=== PATIENT | female | born 1945 | race Caucasian/White ===

== ENCOUNTER 2022-02-27 12:48 | Outpatient (CLI) | payer MEDICARE, SELFPAY ==
--- NOTE | ~2022-02-27 | MM_ITS ---
EXAMINATION: MM diagnostic lamin BI w justin HISTORY: Left breast mass seen on recent nuclear scan. Mammography requested. TECHNIQUE: Additional 3-D tomosynthesis images of the breasts were performed and synthetic 2-D images were generated. CAD analysis was submitted and interpreted. COMPARISON: Comparison to multiple prior studies sequentially, with oldest reviewed study dated 05/28. BREAST PARENCHYMAL COMPOSITION: Breast composed of scattered areas of fibroglandular density. FINDINGS: There are no suspicious masses, calcifications or architectural distortion in either breast to suggest malignancy. There are benign calcified nodules in the subareolar location of the left xin ast which are unchanged. There are benign calcifications. IMPRESSION: 1. No mammographic evidence for malignancy in either breast. 2. Routine yearly screening mammogram and regular clinical breast examination are recommended. BI-RADS Category 2: Benign finding(s). Reviewed, dictated and finalized at location A. IMPRESSION: 1. No mammographic evidence for malignancy in either breast. 2. Routine yearly screening mammogram and regular clinical breast examination a re recommended. BI-RADS Category 2: Benign finding(s).
== END 2022-02-27 12:49 | disposition home or self-care (01) ==
PROVIDERS: PCP Family Medicine; Visit Provider Family Medicine
DX: R93.89 Abnormal findings on diagnostic imaging of other specified body structures (principal); R92.8 Other abnormal and inconclusive findings on diagnostic imaging of breast
CPT/HCPCS: 77062; 77066; G0279

== ENCOUNTER 2022-12-14 09:38 | Outpatient (CLI) | payer MEDICARE, SELFPAY ==
--- NOTE | 2022-12-14 | ECHO_ITS ---
Patient Info Name: Kelly Chan Age: 77 years : 1945 Gender: Female Ht: 63 in Wt: 147 lbs BSA: 1.74 m2 HR: 78 bpm BP: 111 / 67 mmHg Technical Quality: Fair Exam Date: 12/14/2022 10:24 AM Exam Location: [facility] Patient Status: Outpatient Admit Date: 12/14/2022 Staff Ordering Physician: Gauri, Fatimah Underwood MD User Experience Designer: Maria Dolores Maxwell RDCS Attending Provider: Gauri, Fatimah Underwood MD Referring Physician: Gauri PENNINGTON; Exam Type: CA echo doppler color flow Study Info Indications R06.00 - Dyspnea, unspecified Complete two-dimensional, color flow and Doppler transthoracic echocardiogram is performed. Summary 1. Complete two-dimensional, color flow and Doppler transthoracic echocardiogram is performed. 2. Left ventricular chamber dimension is normal. 3. Left ventricular systolic function is normal, estimated at 60-65%. 4. The left ventricular diastolic function is grade I diastolic dysfunction. 5. E/e' 9 is minimally elevated. 6. Mild right ventricular hypertrophy. 7. There is mild aortic valve sclerosis. 8. No pulmonary hypertension, estimated pulmonary arterial systolic pressure is 29 mmHg. 9. There is trace pulmonic regurgitation. Left Ventricle E/e' 9 is minimally elevated. Left ventricular chamber dimension is normal. Left ventricular systolic function is normal, estimated at 60-65%. The left ventricular diastolic function is grade I diastolic dysfunction. Right Ventricle Mild right ventricular hypertrophy. Right ventricular chamber dimension is normal. Right ventricular systolic function is normal. Left Atria Left atrial chamber dimension is normal. Right Atria Right atrial chamber dimension is normal. Aortic Valve The aortic valve is trileaflet. There is mild aortic valve sclerosis. There is no aortic valve stenosis. There is no aortic valve regurgitation. Pulmonic Valve There is trace pulmonic regurgitation. Mitral Valve There is no mitral valve stenosis. There is no mitral valve regurgitation. Tricuspid Valve There is no tricuspid valve regurgitation. No pulmonary hypertension, estimated pulmonary arterial systolic pressure is 29 mmHg. Pericardium/Pleural There is no pericardial effusion. Inferior Vena Cava Normal inferior vena cava with >50% collapse upon inspiration consistent with normal right atrial pressure, 5 mmHg. Aorta The aortic root size at the sinus of Valsalva is normal. Left Ventricular Outflow Tract Name Value Normal LVOT 2D LVOT Diameter 2.0 cm LVOT Doppler LVOT Peak Gradient 5 mmHg LVOT Mean Gradient 3 mmHg LVOT VTI 22 cm LVOT VTI/AV VTI Ratio 1.1 LVOT Stroke Volume 69 ml LVOT CO 14.2 l/min LVOT CI 8.2 l/min/m2 Pulmonic Valve Name Value Normal
== END 2022-12-14 09:39 | disposition home or self-care (01) ==
LOC: ANHCARD 09:39
PROVIDERS: PCP Family Medicine; Visit Provider Family Medicine
DX: R06.00 Dyspnea, unspecified (principal); I35.1 Nonrheumatic aortic (valve) insufficiency
CPT/HCPCS: 93306

== ENCOUNTER 2024-08-28 11:59 | Outpatient (CLI) | payer MEDICARE, SELFPAY ==
[2024-08-28 12:27] LABS: Hematocrit 44.6 % (37.0-47.0); Hemoglobin 14.5 g/dL (12.0-15.0); Mean Corpuscular HGB Conc 32.5 g/dl (32-36); Mean Corpuscular Hemoglobin 31.5 pg (26-34); Mean Platelet Volume 9.3 fl (7.4-10.4); Platelet Count Result 447 k/mm3 (150-375); Red Cell Distribution Width 13.5 % (11.5-14.5); White Blood Count 12.5 K/mm3 (4.5-10.0)
[2024-08-28 12:43] LABS: Alanine Aminotransferase 14 U/L (6-35); Albumin Level 4.4 g/dL (3.5-5.1); Alkaline Phosphatase 79 U/L (38-126); Anion Gap 12 mmol/L (4-12); Aspartate Amino Transferase 35 U/L (14-36); Bilirubin,Total 0.7 mg/dL (0.2-1.3); Blood Urea Nitrogen 14 mg/dL (7-17); CRP < 0.5 mg/dL (<1.0); Calcium 8.3 mg/dL (8.4-10.2); Carbon Dioxide 25 mmol/L (22-30); Chloride 100 mmol/L (98-107); Estimated Glomerular Filt Rate 43; Glucose 109 mg/dL (65-110); Potassium 3.1 mmol/L (3.4-5.0); Sodium 137 mmol/L (137-145)
[2024-08-28 13:07] LABS: Erythrocyte Sedimentation Rate 15 mm/hr (0-20)
[2024-09-01 15:38] LABS: Immunoglobulin A 120 mg/dL (70-320); TTG IGA AB <1.0 U/mL
== END 2024-08-28 12:00 | disposition home or self-care (01) ==
PROVIDERS: PCP Family Medicine; Visit Provider Nurse Practitioner
DX: R63.4 Abnormal weight loss (principal); K63.89 Other specified diseases of intestine; K58.9 Irritable bowel syndrome, unspecified
CPT/HCPCS: 36415; 80053; 82784; 84443; 85027; 85652; 86140; 86364

== ENCOUNTER 2024-09-03 15:34 | Outpatient (CLI) | payer MEDICARE, SELFPAY ==
--- NOTE | ~2024-09-03 | CT_ITS ---
EXAMINATION: CT chest abdomen pelvis wo con DATE: 09/03/2024 15:53 INDICATION: Abnormal weight loss. TECHNIQUE: Computed tomography (CT) of the chest, abdomen, and pelvis was performed without intraveno us contrast. Automated exposure control and iterative reconstruction technique were employed. The dos e-length product was 478.81 mGy-cm. COMPARISON: None FINDINGS: CHEST CT: There is septal thickening in the inferior lungs with subpleural bands in the lower lobes. There is m ild bronchiectasis in the inferior lungs. Right middle lobe is small. No honeycombing. A calcified ri ght lung nodule is consistent with old granulomatous disease. No pleural effusion. The heart size is normal. There are coronary artery calcifications. No pericardial effusion. The central pulmonary is e nlarged, consistent with pulmonary arterial hypertension. There is severe cervical and thoracic spond ylosis. ABDOMEN/PELVIS CT: The liver and spleen are normal. There are changes of cholecystectomy. The pancreas, adrenal glands, and kidneys are normal. There is no urolithiasis. Stool distends the rectum. There is diverticulosis of the colon without evidence of diverticulitis. There are no dilated loops of bowel. The appendix is normal. There is calcified atherosclerosis of the aorta and many of the other arteries. There is a 1 7 mm saccular aneurysm of abdominal aorta on the left. There are no pathologically enlarged lymph nod es. There is no free intraperitoneal fluid. There are bilateral inguinal hernias containing fat. Ther e is thoracolumbar levoscoliosis and severe spondylosis. IMPRESSION: 1. Mild chronic interstitial lung disease. 2. Bilateral inguinal hernias containing fat. Reviewed, dictated and finalized at location A. D CONTROLLER
== END 2024-09-03 15:35 | disposition home or self-care (01) ==
PROVIDERS: PCP Family Medicine; Visit Provider Nurse Practitioner
DX: R63.4 Abnormal weight loss (principal); J84.9 Interstitial pulmonary disease, unspecified; K40.20 Bilateral inguinal hernia, without obstruction or gangrene, not specified as recurrent
CPT/HCPCS: 71250; 74176

== ENCOUNTER 2024-09-04 17:09 | Outpatient (NON) | payer MEDICARE, SELFPAY ==
[2024-09-11 18:44] LABS: Pancreatic Elastase, Stool >800 mcg/g (>200)
== END 2024-09-04 17:10 | disposition home or self-care (01) ==
LOC: ANHIMG 17:10
PROVIDERS: PCP Family Medicine; Visit Provider Nurse Practitioner
DX: R63.4 Abnormal weight loss (principal); K63.89 Other specified diseases of intestine; K58.9 Irritable bowel syndrome, unspecified; A04.8 Other specified bacterial intestinal infections
CPT/HCPCS: 82653; 83993; 87045; 87269; 87338; 87427; 87449; 87493

== ENCOUNTER 2024-09-29 08:59 | Outpatient (CLI) | payer MEDICARE, SELFPAY ==
--- NOTE | ~2024-09-29 | DEXA_ITS ---
Bone Density Report Name: ANDRE MEDRANO Age: 79 Sex: Female Ethnicity: White Date of : 1945 Indication: postmenopausal; screening for osteoporosis; height loss; inflammatory bowel disease; hysterectomy; Referring Provider: HILARIA, SOUMYA Gray Study: Bone densitometry was performed. Exam Date: September 29, 2024 Accession number: [id number] Bone Density: Region BMD T-score Z-score Classification AP Spine(L1, L2, L3) 1.000 -0.2 2.5 Normal Femoral Neck (Left) 0.576 -2.5 -0.1 Osteoporosis Total Hip (Left) 0.632 -2.5 -0.4 Osteoporosis Femoral Neck (Right) 0.579 -2.4 -0.1 Osteopenia Total Hip (Right) 0.699 -2.0 0.1 Osteopenia Total Hip Mean 0.665 -2.3 -0.2 Osteopenia World Health Organization criteria for BMD impression classify patients as: Normal (T-score at or above -1.0), Osteopenia (T-score between -1.0 and -2.5), or Osteoporosis (T-score at or below -2.5). 10-year Fracture Risk: FRAX not reported because: Some T-score for Spine Total or Hip Total or Femoral Neck at or below -2.5 Previous Exams: Region Exam Age BMD T-score BMD Change BMD Change Date g/cm2 vs Baseline vs Previous AP Spine (L1-L3) 09/29/2024 79 1.000 -0.2 -0.058 (-5.4%) -0.058 (-5.4%) 07/04/2016 71 1.058 0.4 Total Hip(Left) 09/29/2024 79 0.632 -2.5 -0.247 (-28.1% -0.247 (-28.1% 07/04/2016 71 0.879 -0.5 Total Hip(Right) 09/29/2024 79 0.699 -2.0 -0.180 (-20.4% -0.180 (-20.4% 07/04/2016 71 0.879 -0.5 *Denotes significance at 95% confidence level, LSC for AP Spine = 0.022 g/cm2, LSC for Total Hip = 0.027 g/cm2 Clinical Information Provided by Patient: Has the following medical conditions: Inflammatory bowel diseases, Hysterectomy Patient maximum height was 66.5 No regular weight bearing exercise Onset of menses at age 11 Number of children 5 Impression: The patient has osteoporosis, based on the Left Total Hip T-score. The BMD for the AP Spine (L1-L3) decreased, changing by -5.4% since the last DXA exam. The BMD for the Total Hip(Left) decreased, changing by -28.1% since the last DXA exam. The BMD for the Total Hip(Right) decreased, changing by -20.4% since the last DXA exam. Discussion: INCREASED RISK OF FRACTURE. BONE DENSITY IS UNDESIRABLY LOW AT ONE OR MORE SKELETAL SITES, CONSISTENT WITH POSTMENOPAUSAL OSTEOPOROSIS. This patient's lowest T-score meets the World Health Organization's (WHO) criteria for osteoporosis at one or more sites (T-score -2.5 or below). In untreated patients, the risk of osteoporotic fracture increases approximately two-fold for each 1.0 SD decrease in T-score. Low bone density is not the only risk factor for fracture; also consider factors such as patient's age, frailty or poor health, risk of falling, risk of injury, previous osteoporotic fracture, family history of osteoporosis, cigarette smoking, low body weight, etc. Not everyone with low bone mineral density has osteoporosis; osteomalacia and other metabolic bone disorders should also be considered. Patients who have osteoporosis should be evaluated for specific diseases and conditions (secondary causes) that may cause or contribute to bone loss. The [place] Association of Clinical Endocrinologists (AACE) and National Osteoporosis Foundation (NOF) recommend pharmacologic intervention for all postmenopausal women whose T-score is in this range. The patient should follow a healthful lifestyle (good nutrition with adequate calcium and vitamin D, and appropriate weight-bearing exercise). Follow-Up: Consider a repeat BMD and Vertebral Fracture Assessment (VFA) exam in 2 years or sooner if medically necessary, to reassess this patient's status. Reported by: MIL on 09/29/2024 9:35:00 AM. Reviewed, dictated and finalized at location [facility]
== END 2024-09-29 09:00 | disposition home or self-care (01) ==
LOC: ANHIMG 09:02
PROVIDERS: PCP Nurse Practitioner Family; Visit Provider Internal Medicine Rheumatology
DX: Z78.0 Asymptomatic menopausal state (principal); Z79.52 Long term (current) use of systemic steroids; M81.0 Age-related osteoporosis without current pathological fracture; M85.851 Other specified disorders of bone density and structure, right thigh
CPT/HCPCS: 77080

== ENCOUNTER 2024-12-16 02:33 | Day surgery (SDC) | payer MEDICARE, SELFPAY ==
[2024-12-08 12:00] VITALS: BMI 22.6
--- OUTSIDE RECORDS SUMMARY | 2024-12-16 02:36 | XMS_ITS | Clinical Summary ---
Author Organization [facility] Address [address] [place] [address] Care Team Providers Care Clinical Nursing Instructor Name Role Phone Fatimah Astorga MD Primary Care Provider + Allergies Active Allergy Reactions Criticality Noted Date Comments Morphine Anaphylaxis Reaction: ANAPHYLAXIS, Medications atorvastatin (LIPITOR) 20 mg tablet TK 1 T PO QD 4 04/24/20 18 Active aspirin 81 mg enteric coated tablet daily 12/30/19 09 Active lansoprazole (PREVACID) 30 mg capsule 2 (two) times a day 4 03/06/20 18 Active cholecalciferol (VITAMIN D-3) 2,000 unit tablet qd 12/30/19 09 Active nitrofurantoin monohydrate (MACROBID) 100 mg capsule nitrofurantoin monohydrate/macroc rystals 100 mg capsule TAKE 1 CAPSULE BY MOUTH EVERY 12 HOURS FOR 7 DAYS Active omeprazole (PriLOSEC) 40 mg capsule Active furosemide (LASIX) 20 mg tablet Take 1 tablet (20 mg total) by mouth 2 (two) times a day 03/22/20 23 Active allopurinoL (ZYLOPRIM) 100 mg tablet Take 1 tablet (100 mg total) by mouth daily 03/07/20 23 Active nitroglycerin (NITROSTAT) 0.[address] 1 tablet (0.4 mg total) under the tongue every 5 (five) minutes as needed for chest pain 90 tablet 1 06/01/20 23 Active lisinopril-hydr oCHLOROthiazide (ZESTORETIC) 20-12.5 mg per tablet TAKE 2 TABLETS BY MOUTH EVERY DAY 180 tablet 3 07/09/20 23 Active amLODIPine (NORVASC) 5 mg tablet TAKE 1 TABLET (5 MG TOTAL) BY MOUTH DAILY. 90 tablet 1 10/11/19 24 Active Active Problems Problem Noted Date Diagnosed Date Coronary artery disease invo lving [place] coronary artery of [place] heart without angina pectoris 04/29/2018 Essential hypertension 04/29/2018 Immunizations Immunization Administration Dates Next Due Influenza, Trivalent, IM (MDV) 10/29/2006 Moderna SARS-CoV-2 Monovalent Vaccination (12+ Y RS) 12/31/2020,12/03/2020 Family History Medical History Relation Name Comments Heart attack Father Family history of myocardial infarction - (Added by TW Conv) Atrial fibrillation Sister Family h istory of atrial fibrillation - (Added by TW Conv) Relation Name Status Comments Father Sister Social History Tobacco Use Types Packs/Day Years Used Date Smoking Tobacco: Never Smokeless Tobacco: Never Comments Unknown Sex and Gender Information Value Date Recorded Sex Assigned at Not on file 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 Gender Identity Not on file Sexual Orientation Not on file Obstetrics History Last Filed Vital Signs Vital Sign Reading Time Taken Comments Blood Pressure 156/79 05/24/2023 9:58 AM CDT Pulse 88 05/24/2023 9:58 AM CDT Temperature 36.7 C (98 F) 05/12/2021 9:04 AM CDT Respiratory Rate - - Oxygen Saturation 98% 05/24/2023 9:58 AM CDT Inhaled Oxygen Concentration - - Weight 71.7 kg (158 lb) 05/24/2023 9:58 AM CDT Height 160 cm (5' 3 ) 05/24/2023 9:58 AM CDT Body Mass Index 27.99 05/24/2023 9:58 AM CDT Plan of Treatment Health Maintenance Due Date Last Done Comments Depression Screening 1945 Fall Risk Assessment 1945 Osteoporosis Screening-Bone Density Scan 1945 DTaP/Tdap/Td Vaccine (1 - Tdap) 1954 Hepatitis B Screening 1961 Zoster Vaccine (1 of 2) 1993 Well Visit 65+ 2008 Covid-19 Vaccine (3 - 2023-2 5 season) 2024 12/31/2020, 12/03/2020 Influenza Vaccine (#1) 2024 9, 06/11/2018, 07/02/2017, Additional history exists Pneumococcal vaccine 65+ Completed 06/01/2016, 06/18 Insurance MEDICARE MEDICARE MEDICARE [facility] Care Teams Clinical Nursing Instructor Relationship Specialty Start Date End Date Fatimah Astorga MD PCP - General 04/23/17
--- OUTSIDE RECORDS SUMMARY | 2024-12-16 02:36 | XMS_ITS | Clinical Summary ---
Author Organization [facility] Address [address] 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
--- OUTSIDE RECORDS SUMMARY | 2024-12-16 02:36 | XMS_ITS | Encounter Summary ---
Author Organization [facility] Address [address] [place] [address] Care Team Providers Care Filling Machine Set Up Mechanic Name Role Phone Unavailable Primary Care Provider Unavailabl e Encounter Details Date Type Department Care Team (Late st Contact Info) Description 10/29/1999 Outpatient Historical [facility], Bobby Whitmore MD [address], [place] [id number] Personal history of other disorder of urinary system (Primary Dx) Social History Tobacco Use Types Packs/Day Years Used Date Smoking Tobacco: Never Assessed Comments Unknown Sex and Gender Information Value Date Recorded Sex Assigned at Not on file 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
--- OUTSIDE RECORDS SUMMARY | 2024-12-16 02:36 | XMS_ITS | Referral Summary ---
Author Organization [facility] Address [address] [place] [address] Care Team Providers Care Metallurgical Lab Technician Name Role Phone Fatimah Astorga MD Primary [...] Diagnosed Date Coronary artery disease invo lving [place] coronary artery of [place] heart without angina pectoris 04/29/2018 Essential hypertension 04/29/2018 Immunizations Immunization Administration Dates Next Due Influenza, Trivalent, IM (MDV) 10/29/2006 Moderna SARS-CoV-2 Monovalent Vaccination (12+ Y RS) 12/31/2020,12/03/2020 Social History Tobacco Use Types Packs/Day Years Used Date Smoking Tobacco: Never Smokeless Tobacco: Never Comments Unknown Sex and Gender Information Value Date Recorded Sex Assigned at Not on file 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 Care Teams Metallurgical Lab Technician Relationship Specialty Start Date End Date Fatimah Astorga MD PCP - General 04/23/17
--- OUTSIDE RECORDS SUMMARY | 2024-12-16 02:36 | XMS_ITS | Data Portability ---
Author Organization [facility] [employer], Main Office Address [address] [place] [address] Care Team Providers Care Hog Dropper Name Role Phone MYKE ASTORGA Primary Care Provider MYKE ASTORGA Referring Provider Assessment Encounter Date Assessment Date Assessment LastModified by Organization Details LastModified Time 08/23/2023 08/23/2023 samples given linzess 72 mcg daily [email or web address] Not available 08/23/2023 14:24:40 Plan of Treatment Reminders Order Date Submit Date Provider Last Modified By Organization Details Last Modified Time Details Appointments Follow Up 30 2024 01:30P Surendra Hernandez NP Not available Not available Not available Lab lipid panel, serum 2024 025 [facility] (Lab), [address] [place], [address], 12/10/2024 10:52:42 hepatic function panel, serum 2024 025 [facility] (Lab), [address] [place], [address], 12/10/2024 10:52:42 CMP, serum or plasma 2024 025 [facility] (Lab), [address] [place], [address], 12/10/2024 10:52:43 glycohemo globin, total, blood 2024 025 [facility] (Lab), [address] [place], [address], 12/10/2024 10:52:43 iron + total iron-bind ing capacity (TIBC), serum 2024 025 [facility] (Lab), [address] [place], [address], 12/10/2024 10:52:43 ferritin, serum or plasma 2024 025 [facility] (Lab), [address] [place], [address], 12/10/2024 10:52:43 CBC w/ auto diff 2024 025 [facility] (Lab), [address] [place], [address], 12/10/2024 10:52:42 vitamin B12 + folate, serum or blood 2024 025 [facility] (Lab), [address] [place], [address], 12/10/2024 10:52:42 urinalysi s complete, reflex culture 2023 024 [facility] (Lab), [address] [place], [address], 01/01/2024 20:33:57 urinalysi s, dipstick 2023 024 [facility], [address] [place] [address] [address], [place], [address], 01/01/2024 13:31:36 ESR (erythroc yte sedimenta tion rate), blood 2023 024 [facility] (Lab), [address] [place], [address], 01/01/2024 20:33:29 BMP, serum or plasma 2023 024 [facility] (Lab), [address] [place], [address], 01/01/2024 21:19:49 CBC w/ auto diff 2023 024 [facility] (Lab), [address] [place], [address], 01/01/2024 19:45:51 vitamin B12, serum 2023 024 [facility] (Lab), [address] [place], [address], 01/01/2024 22:25:14 folate, serum 2023 024 [facility] (Lab), [address] [place], [address], 01/01/2024 22:25:16 ESR (erythroc yte sedimenta tion rate), blood [address] (Lab), [address] [place], [address], 08/23/2023 16:45:09 hepatic function panel, serum [address] (Lab), [address] [place], [address], 08/23/2023 16:43:25 lipid panel, serum [address] (Lab), [address] [place], [address], 08/23/2023 16:44:45 BMP, serum or plasma [address] (Lab), [address] [place], [address], 08/23/2023 16:42:56 iron + total iron-bind ing capacity (TIBC), serum [address] (Lab), [address] [place], [address], 08/23/2023 16:43:46 ferritin, serum or plasma [address] (Lab), [address] [place], [address], 08/23/2023 16:44:09 vitamin B12, serum [address] (Lab), [address] [place], [address], 08/23/2023 16:41:32 folate, serum [address] (Lab), [address] [place], [address], 08/23/2023 16:42:15 CBC w/ auto diff [address] (Lab), [address] [place], [address], 08/23/2023 16:42:36 Referral rheumatol ogist referral - Please call patient to schedule an appointme nt. Thank you. 2023 024 RAFAT Mirza DO, [address] [facility], [address], [place], [address], 05/15/2024 17:24:18 Procedures None recorded. Surgeries None recorded. Imaging None recorded. Medication Orders valacyclo vir 1 gram tablet 2024 025 [facility] [id number] [facility], [address] [place] [address], [address], 11/18/2024 14:25:59 hydrocodo ne 5 mg-acetam inophen 325 mg tablet 2024 025 [facility] [address] [facility], [address] [place] [address], [address], 11/18/2024 14:28:24 colchicin e 0.6 mg tablet 2023 024 [email or web address] [address] [facility] [address], [address], 11/18/2024 14:10:18 hydrocodo ne 5 mg-acetam inophen 325 mg tablet 2023 024 [facility] [address], [address], 04/25/2024 16:30:29 cephalexi n 500 mg capsule 2023 024 [email or web address] [address] [facility] [address], [address], 11/18/2024 14:09:59 nitrofura ntoin monohydra te/macroc rystals 100 mg capsule 2023 024 [email or web address] [address] [facility] [address], [address], 11/18/2024 14:11:54 hydrocodo ne 5 mg-acetam inophen 325 mg tablet 2023 024 [facility] [address], [address], 01/01/2024 13:14:17 prednison e 20 mg tablet 2023 024 [email or web address] 77 [facility] [address] In [facility], [address] [place] [address], [address], 11/18/2024 14:12:28 hydrocodo ne 5 mg-acetam inophen 325 mg tablet 2023 024 [facility] [address] In [facility], [address] [place] [address], [address], 11/26/2023 10:54:31 clobetaso l 0.05 % topical cream 2023 024 77 [facility] [address] In [facility], [address] [place] [address], [address], 04/25/2024 15:31:57 valacyclo vir 1 gram tablet 2022 023 [facility] [address], [address], 08/23/2023 14:18:33 hydrocodo ne 5 mg-acetam inophen 325 mg tablet 2022 023 [facility] [address] In [facility], [address] [place] [address], [address], 08/23/2023 14:25:13 triamcino lone acetonide 0.1 % topical cream 2022 023 [facility] [address], [address], 08/23/2023 14:18:30 nystatin 100,000 unit/gram topical cream 2022 023 [facility] [address], [address], 08/23/2023 14:18:31 Patient TargetsNo targets recorded. Patient Instructions Encounter Date Encounter Id Patient Instructions Last Modified By Organization Details Last Modified Time 11/18/2024 [id number] dementia rating scale-2* [email or web address] Not available 11/18/2024 15:42:50 multi-dimensiona l health assessment questionnaire* [email or web address] Not available 11/18/2024 14:29:24 care plan* [email or web address] Not available 12/2024 14:29:24 advance directives: care instructions [email or web address] Not available 11/18/2024 14:29:24 advance care planning: care instructions Not available 11/18/2024 14:29:24 [place] Advance Directives [email or web address] Not available 11/18/2024 14:29:24 Reason for Referral [employer] Referral for Referral needed Please call patient to schedule an appointment. Thank you. Referring Physician: Luzma Hernandez, Family Medicine, Encounter Date: 04/25/2024 Results Created Date Observation Date Name Description Value Unit Range Abnormal Flag Note LastModifiedBy Organization Detail LastModifiedTime 08/23/20 23 08/23/2023 CBC/C OMPLE TE BLD COUNT W/DIF F white blood cells 16.8 x10'3 /uL 4.2-10 .8 high Not Available [facility] (Lab) [address] [place], [address], 08/23/2023 21:26:38 08/23/20 23 08/23/2023 CBC/C OMPLE TE BLD COUNT W/DIF F red blood cells 4.11 x10'6 /uL 3.80-5 .20 Not Available [facility] (Lab) [address] [place], [address], 08/23/2023 21:26:38 08/23/20 23 08/23/2023 CBC/C OMPLE TE BLD COUNT W/DIF F hemoglobin 13.1 g/dL 12.0-1 5.6 Not Available [facility] (Lab) [address] [place], [address], 08/23/2023 21:26:38 08/23/20 23 08/23/2023 CBC/C OMPLE TE BLD COUNT W/DIF F hematocrit 41.6 % 35.7-4 5.7 Not Available [facility] (Lab) [address] [place], [address], 08/23/2023 21:26:38 08/23/20 23 08/23/2023 CBC/C OMPLE TE BLD COUNT W/DIF F mean red cell volume 101.2 fL 82.0-9 9.0 high Not Available [facility] (Lab) [address] [place], [address], 08/23/2023 21:26:38 08/23/20 23 08/23/2023 CBC/C OMPLE TE BLD COUNT W/DIF F mean red cell hemoglobin 31.9 pg 27.0-3 3.0 Not Available [facility] (Lab) [address] [place], [address], 08/23/2023 21:26:38 08/23/20 23 08/23/2023 CBC/C OMPLE TE BLD COUNT W/DIF F mean RBC HGB concentratio n 31.5 g/dL 31.0-3 6.0 Not Available [facility] (Lab) [address] [place], [address], 08/23/2023 21:26:38 08/23/20 23 08/23/2023 CBC/C OMPLE TE BLD COUNT W/DIF F red cell distribution width 14.4 % 11.8-1 5.5 Not Available [facility] (Lab) [address] [place], [address], 08/23/2023 21:26:38 08/23/20 23 08/23/2023 CBC/C OMPLE TE BLD COUNT W/DIF F platelets 417 x10'3 /uL 150-40 0 high Not Available [facility] (Lab) [address] [place], [address], 08/23/2023 21:26:38 08/23/20 23 08/23/2023 CBC/C OMPLE TE BLD COUNT W/DIF F mean platelet volume 9.5 fL 9.0-12 .4 Not Available [facility] (Lab) [address] [place], [address], 08/23/2023 21:26:38 08/23/20 23 08/23/2023 CBC/C OMPLE TE BLD COUNT W/DIF F neutrophils 88.5 % 39.0-7 2.0 high Not Available [facility] (Lab) [address] [place], [address], 08/23/2023 21:26:38 08/23/20 23 08/23/2023 CBC/C OMPLE TE BLD COUNT W/DIF F lymphocytes 6.9 % 16.0-4 7.0 low Not Available [facility] (Lab) [address] [place], [address], 08/23/2023 21:26:38 08/23/20 23 08/23/2023 CBC/C OMPLE TE BLD COUNT W/DIF F monocytes 3.3 % 5.0-12 .0 low Not Available [facility] (Lab) [address] [place], [address], 08/23/2023 21:26:38 08/23/20 23 08/23/2023 CBC/C OMPLE TE BLD COUNT W/DIF F eosinophils 0.4 % 1.0-7. 0 low Not Available [facility] (Lab) [address] [place], [address], 08/23/2023 21:26:38 08/23/20 23 08/23/2023 CBC/C OMPLE TE BLD COUNT W/DIF F basophils 0.4 % 0.0-2. 0 Not Available [facility] (Lab) [address] [place], [address], 08/23/2023 21:26:38 08/23/20 23 08/23/2023 CBC/C OMPLE TE BLD COUNT W/DIF F immature granulocytes 0.5 % 0.00-0 .50 Not Available [facility] (Lab) [address] [place], [address], 08/23/2023 21:26:38 08/23/20 23 08/23/2023 CBC/C OMPLE TE BLD COUNT W/DIF F neutrophils, absolute count 14.85 x10'3 /uL 1.5-8. 0 high Not Available [facility] (Lab) [address] [place], [address], 08/23/2023 21:26:38 08/23/20 23 08/23/2023 CBC/C OMPLE TE BLD COUNT W/DIF F lymphocytes, absolute count 1.16 x10'3 /uL 1.07-3 .43 Not Available [facility] (Lab) [address] [place], [address], 08/23/2023 21:26:38 08/23/20 23 08/23/2023 CBC/C OMPLE TE BLD COUNT W/DIF F monocytes, absolute count 0.56 x10'3 /uL 0.29-0 .99 Not Available [facility] (Lab) [address] [place], [address], 08/23/2023 21:26:38 08/23/20 23 08/23/2023 CBC/C OMPLE TE BLD COUNT W/DIF F eosinophils, absolute count 0.07 x10'3 /uL 0.02-0 .53 Not Available [facility] (Lab) [address] [place], [address], 08/23/2023 21:26:38 08/23/20 23 08/23/2023 CBC/C OMPLE TE BLD COUNT W/DIF F basophils, absolute count 0.07 x10'3 /uL 0.01-0 .08 Not Available [facility] (Lab) [address] [place], [address], 08/23/2023 21:26:38 08/23/20 23 08/23/2023 CBC/C OMPLE TE BLD COUNT W/DIF F immature granulocytes ,absolute 0.09 x10'3 /uL 0.00-0 .05 high Not Available [facility] (Lab) [address] [place], [address], 08/23/2023 21:26:38 08/23/20 23 08/23/2023 CBC/C OMPLE TE BLD COUNT W/DIF F nucleated red blood cells 0.0 % -0 Not Available [facility] (Lab) [address] [facility] [place], [address], 08/23/2023 21:26:38 08/23/20 23 08/23/2023 CBC/C OMPLE TE BLD COUNT W/DIF F NRBC# 0.00 x10'3 /uL Not Available [facility] (Lab) [address] [place], [address], 08/23/2023 21:26:38 08/23/20 23 08/23/2023 SEDIM ENTAT ION RATE erythrocyte sedimentatio n rate 20 mm/HR 0-20 Not Available [facility] (Lab) [address] [place], [address], 08/23/2023 21:42:46 08/23/20 23 08/23/2023 IRON/ TIBC PANEL total iron binding capacity 301 mcg/d L 265-47 5 Not Available [facility] (Lab) [address] [place], [address], 08/23/2023 22:27:57 08/23/20 23 08/23/2023 IRON/ TIBC PANEL % transferrin saturation 21 % 20-55 Not Available [facility] (Lab) [address] [place], [address], 08/23/2023 22:27:57 08/23/20 23 08/23/2023 IRON/ TIBC PANEL unsaturated iron bind capacity 237 mcg/d L 126-38 2 Not Available [facility] (Lab) [address] [place], [address], 08/23/2023 22:27:57 08/23/20 23 08/23/2023 IRON/ TIBC PANEL iron 64 mcg/d L 42-175 Not Available [facility] (Lab) [address] [place], [address], 08/23/2023 22:27:57 08/23/20 23 08/23/2023 BASIC METAB OLIC PANEL sodium 138 mmol/ L 137-14 5 Not Available [facility] (Lab) [address] [place], [address], 08/23/2023 22:26:30 08/23/20 23 08/23/2023 BASIC METAB OLIC PANEL potassium 3.3 mmol/ L 3.5-5. 1 low Not Available [facility] (Lab) [address] [place], [address], 08/23/2023 22:26:30 08/23/20 23 08/23/2023 BASIC METAB OLIC PANEL chloride 99 mmol/ L 98-107 Not Available [facility] (Lab) [address] [place], [address], 08/23/2023 22:26:30 08/23/20 23 08/23/2023 BASIC METAB OLIC PANEL carbon dioxide 27 mmol/ L 22-30 Not Available [facility] (Lab) [address] [place], [address], 08/23/2023 22:26:30 08/23/20 23 08/23/2023 BASIC METAB OLIC PANEL anion gap 15.3 mmol/ L 14-22 Not Available [facility] (Lab) [address] [place], [address], 08/23/2023 22:26:30 08/23/20 23 08/23/2023 BASIC METAB OLIC PANEL glucose 119 mg/dL 70-99 high Not Available [facility] (Lab) [address] [place], [address], 08/23/2023 22:26:30 08/23/20 23 08/23/2023 BASIC METAB OLIC PANEL BUN 19 mg/dL 8-19 Not Available [facility] (Lab) [address] [place], [address], 08/23/2023 22:26:30 08/23/20 23 08/23/2023 BASIC METAB OLIC PANEL creatinine 1.18 mg/dL 0.66-1 .25 Not Available [facility] (Lab) [address] [place], [address], 08/23/2023 22:26:30 08/23/20 23 08/23/2023 BASIC METAB OLIC PANEL GFR 44 Refer ence Range : Galva ge GFR Healt hy Adult : >60 mL/mi n/1.7 3 m2 Chron ic Kidne y Disea se: 15-60 mL/mi n/1.7 3 m2 Kidne y Failu re: <15/m L/min /1.73 m2 www.n iddk. nih.g ov The MDRD study equat ion has not been valid ated in child pranav <18 years of age; pregn ant women ; the elder ly >85 years of age; or in some racia l or ethni c subgr oups, such as Hispa nics. Outsi de the valid ated xander eters , estim ated GFR is less accur ate, requi ring clini luisito judgm ent on a case- by-ca se basis . Clini luisito inter preta tion for other races and ages must be made by the clini cheryl. The MDRD study equat ion has not been valid ated for the evalu ation of serum creat inine relat ed to nutri sanjana l statu s or medic ation usage . For perso ns <18 years of age, a pedia tric GFR calcu lator is avail able on the NKF websi te: https ://shivam ace.o rg/pr ofess ional s/kdo qi/gf r_cal culat or Not Available [facility] (Lab) [address] [place], [address], 08/23/2023 22:26:30 08/23/20 23 08/23/2023 BASIC METAB OLIC PANEL calcium 9.1 mg/dL 8.4-10 .2 Not Available [facility] (Lab) [address] [place], [address], 08/23/2023 22:26:30 08/23/20 23 08/23/2023 HEPAT IC/LI RICHA PANEL alkaline phosphatase 55 U/L 38-126 Not Available [facility] (Lab) [address] [place], [address], 08/23/2023 22:26:34 08/23/20 23 08/23/2023 HEPAT IC/LI RICHA PANEL alanine aminotransfe rase 16 U/L 0-35 Not Available [facility] (Lab) [address] [place], [address], 08/23/2023 22:26:34 08/23/20 23 08/23/2023 HEPAT IC/LI RICHA PANEL aspartate aminotransfe rase 24 U/L 15-37 Not Available [facility] (Lab) [address] [place], [address], 08/23/2023 22:26:34 08/23/20 23 08/23/2023 HEPAT IC/LI RICHA PANEL bilirubin, total 0.50 mg/dL 0.20-1 .30 Not Available [facility] (Lab) [address] [place], [address], 08/23/2023 22:26:34 08/23/20 23 08/23/2023 HEPAT IC/LI RICHA PANEL bilirubin, conjugated (direct) 0.00 mg/dL 0.00-0 .30 Not Available [facility] (Lab) [address] [place], [address], 08/23/2023 22:26:34 08/23/20 23 08/23/2023 HEPAT IC/LI RICHA PANEL biliurubin,u ncong. (indirect) 0.30 mg/dL 0.00-1 .1 Not Available [facility] (Lab) [address] [place], [address], 08/23/2023 22:26:34 08/23/20 23 08/23/2023 HEPAT IC/LI RICHA PANEL total protein 7.2 g/dL 6.3-8. 2 Not Available [facility] (Lab) [address] [place], [address], 08/23/2023 22:26:34 08/23/20 23 08/23/2023 HEPAT IC/LI RICHA PANEL albumin 4.2 g/dL 3.0-4. 4 Not Available [facility] (Lab) [address] [place], [address], 08/23/2023 22:26:34 08/23/20 23 08/23/2023 HEPAT IC/LI RICHA PANEL globulin 3.0 g/dL 2.6-4. 2 Not Available [facility] (Lab) [address] [place], [address], 08/23/2023 22:26:34 08/23/20 23 08/23/2023 HEPAT IC/LI RICHA PANEL A/G ratio 1.4 ratio 1.0-2. 0 Not Available [facility] (Lab) [address] [place], [address], 08/23/2023 22:26:34 08/23/20 23 08/23/2023 LIPID PANEL cholesterol 230 mg/dL 140-19 9 high NIH SHANNEN NSUS RECOM MENDA TION FOR SEDA STERO L: ADULT CHILD LOW RISK: <200 <170 BORDE RLINE : <200- 239 ----- HIGH RISK: >240 >200 Not Available [facility] (Lab) [address] [place], [address], 08/23/2023 22:26:40 08/23/20 23 08/23/2023 LIPID PANEL triglyceride s 207 mg/dL 0-150 high NIH SHANNEN NSUS REPOR T RECOM MENDA TION FOR TRIGL YCERI JIM: ADULT CHILD LOW RISK: <150 ----- BODER LINE: 150-1 99 ----- HIGH RISK: >200 ----- Not Available [facility] (Lab) [address] [place], [address], 08/23/2023 22:26:40 08/23/20 23 08/23/2023 LIPID PANEL HDL cholesterol 77 mg/dL 40- Not Available [facility] (Lab) [address] [place], [address], 08/23/2023 22:26:40 08/23/20 23 08/23/2023 LIPID PANEL LDL cholesterol, calculated 112 mg/dL 0-130 NIH SHANNEN NSUS REPOR T RECOM MENDA TIONS FOR LDL: ADULT CHILD LOW RISK <130 <110 (OPTI MAL LDL) <100 ----- BORDE RLINE : 130-1 59 ----- HIGH RISK: >160 >130 A TRIGL YCERI DE RESUL T >400 INVAL IDATE S THE CALCU LATIO N FOR LDL FRACT IONAT ION - THE LDL RESUL T WILL NOT BE REPOR KEYLA. Not Available [facility] (Lab) [address] [place], [address], 08/23/2023 22:26:40 08/23/20 23 08/23/2023 CHRISTIE TIN ferritin 78 NG/mL 11.1-2 64 Not Available [facility] (Lab) [address] [place], [address], 08/23/2023 22:51:16 08/23/20 23 08/23/2023 VITAM IN B12 (CARLOS RAFAT ) vb12 312 pg/mL 239-93 1 Not Available [facility] (Lab) [address] [place], [address], 08/23/2023 23:00:32 08/23/20 23 08/23/2023 FOLAT E, SERUM /PLAS MA folate 4.90 NG/mL 2.76-2 0.0 Not Available [facility] (Lab) [address] [place], [address], 08/23/2023 23:00:34 01/01/20 24 01/01/2024 CBC/C OMPLE TE BLD COUNT W/DIF F white blood cells 11.5 x10'3 /uL 4.2-10 .8 high Not Available [facility] (Lab) [address] [place], [address], 01/01/2024 19:45:51 01/01/20 24 01/01/2024 CBC/C OMPLE TE BLD COUNT W/DIF F red blood cells 4.00 x10'6 /uL 3.80-5 .20 Not Available [facility] (Lab) [address] [place], [address], 01/01/2024 19:45:51 01/01/20 24 01/01/2024 CBC/C OMPLE TE BLD COUNT W/DIF F hemoglobin 12.8 g/dL 12.0-1 5.6 Not Available [facility] (Lab) [address] [place], [address], 01/01/2024 19:45:51 01/01/20 24 01/01/2024 CBC/C OMPLE TE BLD COUNT W/DIF F hematocrit 38.4 % 35.7-4 5.7 Not Available [facility] (Lab) [address] [place], [address], 01/01/2024 19:45:51 01/01/20 24 01/01/2024 CBC/C OMPLE TE BLD COUNT W/DIF F mean red cell volume 96.0 fL 82.0-9 9.0 Not Available [facility] (Lab) [address] [place], [address], 01/01/2024 19:45:51 01/01/20 24 01/01/2024 CBC/C OMPLE TE BLD COUNT W/DIF F mean red cell hemoglobin 32.0 pg 27.0-3 3.0 Not Available [facility] (Lab) [address] [place], [address], 01/01/2024 19:45:51 01/01/20 24 01/01/2024 CBC/C OMPLE TE BLD COUNT W/DIF F mean RBC HGB concentratio n 33.3 g/dL 31.0-3 6.0 Not Available [facility] (Lab) [address] [place], [address], 01/01/2024 19:45:51 01/01/20 24 01/01/2024 CBC/C OMPLE TE BLD COUNT W/DIF F red cell distribution width 13.7 % 11.8-1 5.5 Not Available [facility] (Lab) [address] [place], [address], 01/01/2024 19:45:51 01/01/20 24 01/01/2024 CBC/C OMPLE TE BLD COUNT W/DIF F platelets 396 x10'3 /uL 150-40 0 Not Available [facility] (Lab) [address] [place], [address], 01/01/2024 19:45:51 01/01/20 24 01/01/2024 CBC/C OMPLE TE BLD COUNT W/DIF F mean platelet volume 9.6 fL 9.0-12 .4 Not Available [facility] (Lab) [address] [place], [address], 01/01/2024 19:45:51 01/01/20 24 01/01/2024 CBC/C OMPLE TE BLD COUNT W/DIF F neutrophils 87.0 % 39.0-7 2.0 high Not Available [facility] (Lab) [address] [place], [address], 01/01/2024 19:45:51 01/01/20 24 01/01/2024 CBC/C OMPLE TE BLD COUNT W/DIF F lymphocytes 7.9 % 16.0-4 7.0 low Not Available [facility] (Lab) [address] [place], [address], 01/01/2024 19:45:51 01/01/20 24 01/01/2024 CBC/C OMPLE TE BLD COUNT W/DIF F monocytes 3.6 % 5.0-12 .0 low Not Available [facility] (Lab) [address] [place], [address], 01/01/2024 19:45:51 01/01/20 24 01/01/2024 CBC/C OMPLE TE BLD COUNT W/DIF F eosinophils 0.3 % 1.0-7. 0 low Not Available [facility] (Lab) [address] [place], [address], 01/01/2024 19:45:51 01/01/20 24 01/01/2024 CBC/C OMPLE TE BLD COUNT W/DIF F basophils 0.5 % 0.0-2. 0 Not Available [facility] (Lab) [address] [place], [address], 01/01/2024 19:45:51 01/01/20 24 01/01/2024 CBC/C OMPLE TE BLD COUNT W/DIF F immature granulocytes 0.7 % 0.00-0 .50 high Not Available [facility] (Lab) [address] [place], [address], 01/01/2024 19:45:51 01/01/20 24 01/01/2024 CBC/C OMPLE TE BLD COUNT W/DIF F neutrophils, absolute count 10.02 x10'3 /uL 1.5-8. 0 high Not Available [facility] (Lab) [address] [place], [address], 01/01/2024 19:45:51 01/01/20 24 01/01/2024 CBC/C OMPLE TE BLD COUNT W/DIF F lymphocytes, absolute count 0.91 x10'3 /uL 1.07-3 .43 low Not Available [facility] (Lab) [address] [place], [address], 01/01/2024 19:45:51 01/01/20 24 01/01/2024 CBC/C OMPLE TE BLD COUNT W/DIF F monocytes, absolute count 0.41 x10'3 /uL 0.29-0 .99 Not Available [facility] (Lab) [address] [place], [address], 01/01/2024 19:45:51 01/01/20 24 01/01/2024 CBC/C OMPLE TE BLD COUNT W/DIF F eosinophils, absolute count 0.04 x10'3 /uL 0.02-0 .53 Not Available [facility] (Lab) [address] [place], [address], 01/01/2024 19:45:51 01/01/20 24 01/01/2024 CBC/C OMPLE TE BLD COUNT W/DIF F basophils, absolute count 0.06 x10'3 /uL 0.01-0 .08 Not Available [facility] (Lab) [address] [place], [address], 01/01/2024 19:45:51 01/01/20 24 01/01/2024 CBC/C OMPLE TE BLD COUNT W/DIF F immature granulocytes ,absolute 0.08 x10'3 /uL 0.00-0 .05 high Not Available [facility] (Lab) [address] [place], [address], 01/01/2024 19:45:51 01/01/20 24 01/01/2024 CBC/C OMPLE TE BLD COUNT W/DIF F nucleated red blood cells 0.0 % -0 Not Available [facility] (Lab) [address] [place], [address], 01/01/2024 19:45:51 01/01/20 24 01/01/2024 CBC/C OMPLE TE BLD COUNT W/DIF F NRBC# 0.00 x10'3 /uL Not Available [facility] (Lab) [address] [place], [address], 01/01/2024 19:45:51 01/01/20 24 01/01/2024 URINA LYSIS COMPL ETE/I RIS W/RFX color YELLOW Not Available [facility] (Lab) [address] [place], [address], 01/01/2024 20:26:05 01/01/20 24 01/01/2024 URINA LYSIS COMPL ETE/I RIS W/RFX appear CLEAR Not Available [facility] (Lab) [address] [place], [address], 01/01/2024 20:26:05 01/01/20 24 01/01/2024 URINA LYSIS COMPL ETE/I RIS W/RFX specific gravity 1.009 1.001- 1.030 Not Available [facility] (Lab) [address] [place], [address], 01/01/2024 20:26:05 01/01/20 24 01/01/2024 URINA LYSIS COMPL ETE/I RIS W/RFX pH 5.5 pH_un its 5.0-9. 0 Not Available [facility] (Lab) [address] [place], [address], 01/01/2024 20:26:05 01/01/20 24 01/01/2024 URINA LYSIS COMPL ETE/I RIS W/RFX leukocytes NEGATI VE sierra/u L negati ve- Not Available [facility] (Lab) [address] [place], [address], 01/01/2024 20:26:05 01/01/20 24 01/01/2024 URINA LYSIS COMPL ETE/I RIS W/RFX nitrite NEGATI VE negati ve- Not Available [facility] (Lab) [address] [place], [address], 01/01/2024 20:26:05 01/01/20 24 01/01/2024 URINA LYSIS COMPL ETE/I RIS W/RFX protein NEGATI VE mg/dL negati ve- Not Available [facility] (Lab) [address] [place], [address], 01/01/2024 20:26:05 01/01/20 24 01/01/2024 URINA LYSIS COMPL ETE/I RIS W/RFX glucose NORMAL mg/dL normal - Not Available [facility] (Lab) [address] [place], [address], 01/01/2024 20:26:05 01/01/20 24 01/01/2024 URINA LYSIS COMPL ETE/I RIS W/RFX ketones NEGATI VE mg/dL negati ve- Not Available [facility] (Lab) [address] [place], [address], 01/01/2024 20:26:05 01/01/20 24 01/01/2024 URINA LYSIS COMPL ETE/I RIS W/RFX urobilinogen NORMAL mg/dL normal - Not Available [facility] (Lab) [address] [place], [address], 01/01/2024 20:26:05 01/01/20 24 01/01/2024 URINA LYSIS COMPL ETE/I RIS W/RFX bilirubin NEGATI VE mg/dL negati ve- Not Available [facility] (Lab) [address] [place], [address], 01/01/2024 20:26:05 01/01/20 24 01/01/2024 URINA LYSIS COMPL ETE/I RIS W/RFX blood NEGATI VE mg/dL negati ve- Not Available [facility] (Lab) [address] [place], [address], 01/01/2024 20:26:05 01/01/20 24 01/01/2024 URINA LYSIS COMPL ETE/I RIS W/RFX white blood cells 0-8 /i??h pfi?? 0-8 Not Available [facility] (Lab) [address] [place], [address], 01/01/2024 20:26:05 01/01/20 24 01/01/2024 URINA LYSIS COMPL ETE/I RIS W/RFX red blood cells 0-4 /i??h pfi?? 0-4 Not Available [facility] (Lab) [address] [place], [address], 01/01/2024 20:26:05 01/01/20 24 01/01/2024 URINA LYSIS COMPL ETE/I RIS W/RFX bacteria OCCASI ONAL abnormal Not Available [facility] (Lab) [address] [place], [address], 01/01/2024 20:26:05 01/01/20 24 01/01/2024 URINA LYSIS COMPL ETE/I RIS W/RFX mucous OCCASI ONAL /i??l pfi?? abnormal Not Available [facility] (Lab) [address] [place], [address], 01/01/2024 20:26:05 01/01/20 24 01/01/2024 URINA LYSIS COMPL ETE/I RIS W/RFX squamous epithelial FEW /i??l pfi?? abnormal Not Available [facility] (Lab) [address] [place], [address], 01/01/2024 20:26:05 01/01/20 24 01/01/2024 URINA LYSIS COMPL ETE/I RIS W/RFX hyaline cast FEW /i??l pfi?? none seen- abnormal Not Available [facility] (Lab) [address] [place], [address], 01/01/2024 20:26:05 01/01/20 24 01/01/2024 SEDIM ENTAT ION RATE erythrocyte sedimentatio n rate 43 mm/HR 0-20 high Not Available [facility] (Lab) [address] [place], [address], 01/01/2024 20:33:29 01/01/20 24 01/01/2024 BASIC METAB OLIC PANEL sodium 137 mmol/ L 137-14 5 Not Available [facility] (Lab) [address] [place], [address], 01/01/2024 21:19:49 01/01/20 24 01/01/2024 BASIC METAB OLIC PANEL potassium 3.2 mmol/ L 3.5-5. 1 low Not Available [facility] (Lab) [address] [place], [address], 01/01/2024 21:19:49 01/01/20 24 01/01/2024 BASIC METAB OLIC PANEL chloride 101 mmol/ L 98-107 Not Available [facility] (Lab) [address] [place], [address], 01/01/2024 21:19:49 01/01/20 24 01/01/2024 BASIC METAB OLIC PANEL carbon dioxide 28 mmol/ L 22-30 Not Available [facility] (Lab) [address] [place], [address], 01/01/2024 21:19:49 01/01/20 24 01/01/2024 BASIC METAB OLIC PANEL anion gap 11.2 mmol/ L 14-22 low Not Available [facility] (Lab) [address] [place], [address], 01/01/2024 21:19:49 01/01/20 24 01/01/2024 BASIC METAB OLIC PANEL glucose 116 mg/dL 70-99 high Not Available [facility] (Lab) [address] [place], [address], 01/01/2024 21:19:49 01/01/20 24 01/01/2024 BASIC METAB OLIC PANEL BUN 26 mg/dL 8-19 high Not Available [facility] (Lab) [address] [place], [address], 01/01/2024 21:19:49 01/01/20 24 01/01/2024 BASIC METAB OLIC PANEL creatinine 1.37 mg/dL 0.66-1 .25 high Not Available [facility] (Lab) [address] [place], [address], 01/01/2024 21:19:49 01/01/20 24 01/01/2024 BASIC METAB OLIC PANEL GFR 37 Refer ence Range : Galva ge GFR Healt hy Adult : >60 mL/mi n/1.7 3 m2 Chron ic Kidne y Disea se: 15-60 mL/mi n/1.7 3 m2 Kidne y Failu re: <15/m L/min /1.73 m2 www.n iddk. nih.g ov The MDRD study equat ion has not been valid ated in child pranav <18 years of age; pregn ant women ; the elder ly >85 years of age; or in some racia l or ethni c subgr oups, such as Hispa nics. Outsi de the valid ated xander eters , estim ated GFR is less accur ate, requi ring clini luisito judgm ent on a case- by-ca se basis . Clini luisito inter preta tion for other races and ages must be made by the clini cheryl. The MDRD study equat ion has not been valid ated for the evalu ation of serum creat inine relat ed to nutri sanjana l statu s or medic ation usage . For perso ns <18 years of age, a pedia tric GFR calcu lator is avail able on the [facility] websi te: https ://ww w.kid db.o rg/pr ofess ional s/kdo qi/gf r_cal culat or Not Available [facility] (Lab) [address] [place], [address], 01/01/2024 21:19:49 01/01/20 24 01/01/2024 BASIC METAB OLIC PANEL calcium 9.0 mg/dL 8.4-10 .2 Not Available [facility] (Lab) [address] [place], [address], 01/01/2024 21:19:49 01/01/20 24 01/01/2024 VITAM IN B12 (CARLOS RAFAT ) vb12 321 pg/mL 239-93 1 Not Available [facility] (Lab) [address] [place], [address], 01/01/2024 22:25:14 01/01/20 24 01/01/2024 FOLAT E, SERUM /PLAS MA folate 4.53 NG/mL 2.76-2 0.0 Not Available [facility] (Lab) [address] [place], [address], 01/01/2024 22:25:15 01/01/20 24 01/01/2024 urina lysis , dipst ick Leukocytes (reference range: negative sierra/ l) Negati ve Not Available [facility] [address], [place], [address], 01/01/2024 13:02:52 01/01/20 24 01/01/2024 urina lysis , dipst ick Nitrite (reference rage: negative mg/dl) negati ve Not Available [address], [place], [address], 01/01/2024 13:02:52 01/01/20 24 01/01/2024 urina lysis , dipst ick Urobilinogen (reference range: 0.2-1 mg/dl) 0.2 Not Available [address], [place], [address], 01/01/2024 13:02:52 01/01/20 24 01/01/2024 urina lysis , dipst ick Protein (reference range: negative mg/dl) Negati ve Not Available [address], [place], [address], 01/01/2024 13:02:52 01/01/20 24 01/01/2024 urina lysis , dipst ick pH (reference range: 5-7) 5.5 Not Available [address], [place], [address], 01/01/2024 13:02:52 01/01/20 24 01/01/2024 urina lysis , dipst ick Blood (reference range: negative Maulik/ l) Hemoly zed: Trace Not Available [address], [place], [address], 01/01/2024 13:02:52 01/01/20 24 01/01/2024 urina lysis , dipst ick Specific [place] (reference range: 1.005-1.030) 1.010 Not Available [address], [place], [address], 01/01/2024 13:02:52 01/01/20 24 01/01/2024 urina lysis , dipst ick Ketone (reference range: negative mg/dl) Negati ve Not Available [address], [place], [address], 01/01/2024 13:02:52 01/01/20 24 01/01/2024 urina lysis , dipst ick Bilirubin (reference range: negative mg/dl) Negati ve Not Available [address], [place], [address], 01/01/2024 13:02:52 01/01/20 24 01/01/2024 urina lysis , dipst ick Glucose (reference range: negative mg/dl) Negati ve Not Available [address], [place], [address], 01/01/2024 13:02:52 01/01/20 24 01/01/2024 urina lysis , dipst ick Appearance Clear Not Available [address], [place], [address], 01/01/2024 13:02:52 01/01/20 24 01/01/2024 urina lysis , dipst ick Color Yellow Not Available [address], [place], [address], 01/01/2024 13:02:52 08/21/20 23 08/21/2023 cardi ac stres s test No observ ation record ed. [email or web address] [facility] [address], [place], [address], 01/25/2024 16:54:54 08/27/20 23 08/24/2023 US, echoc ardio gram, trans thora cic, compl ete No observ ation record ed. [email or web address] [address], [place], [address], 08/28/2023 09:35:35 08/27/20 23 08/24/2023 US, doppl er, venou s No observ ation record ed. [email or web address] [facility] [address], [place], [address], 09/12/2023 13:03:44 09/03/20 24 09/03/2024 CT, chest + abdom en + pelvi s, w/o contr ast No observ ation record ed. [email or web address] [facility] [address], [place], [address], 11/18/2024 14:14:02 Result Notes None recorded. 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 4694965751203 9108 Active Not Available [facility] 4 19:06:54 Increased frequency of urination 158652446 Active Not Available [facility] 4 19:06:54 Serum creatinine outside reference range 545006587 Active Not Available [facility] 4 19:06:54 Spinal stenosis of lumbar region 29597770 Active Not Available [facility] 4 19:06:54 Abdominal pain 26735793 Active Not Available [facility] 4 19:06:54 Sciatica 44236235 Active Not Available [facility] 4 19:06:54 Gastroesop hageal reflux disease 135818880 Active Not Available [facility] 4 19:06:54 Solar lentiginos is 277751824 Active Not Available [facility] 4 19:06:54 Low back pain 232373762 Active Not Available [facility] 4 19:06:55 Chest pain 26583063 Active Not Available [facility] 4 19:06:55 Swelling of knee joint 838508637 Active Not Available [facility] 4 19:06:55 Knee pain Active Not Available [facility] 4 19:06:55 Osteopenia 176676594 Active 2015 DEXA done 2015 Not Available [facility] 4 19:06:55 Depressive disorder 03483801 Active Not Available [facility] 4 19:06:55 Osteoarthr itis 222240463 Active Not Available [facility] 4 19:06:55 Eczema 94621567 Active Not Available [facility] 4 19:06:55 Herpes zoster 0546707 Active Not Available [facility] 4 19:06:55 Anxiety 35491172 Active Not Available [facility] 4 19:06:55 Coronary arterioscl erosis 22606372 Active Not Available [facility] 4 19:06:55 Hyperlipid emia 60869808 Active Not Available [facility] 4 19:06:55 Essential hypertensi on 89324252 Active Not Available [facility] 4 19:06:55 Fatigue 88481069 Active Not Available [facility] 4 19:06:55 Gout 47233990 Active Not Available [facility] 4 19:06:55 Neoplasm of uncertain behavior of skin 98982479 Active Not Available [facility] 4 19:06:55 Edema of lower extremity 221360127 Active 2022 Not Available [facility] 4 19:06:54 Dyspnea 699088956 Active 2022 Not Available [facility] 4 19:06:55 Hyperurice conchis 98366970 Active 2022 Not Available [facility] 4 19:06:55 Gastroesop hageal reflux disease without esophagiti s 265195466 Active 2022 Not Available [facility] 4 19:06:55 Anemia 584145574 Active 2022 Not Available [facility] 4 19:06:55 Serum creatinine above reference range 633061380 Active 2022 Not Available [facility] 4 19:06:54 Aortic valve sclerosis 88865343 Active 2022 echo done 11/2022 Not Available [facility] 4 19:06:55 Angular cheilitis 614216575 Active 2022 Not Available [facility] 4 19:06:54 Herpes labialis 6700098 Active 2022 Not Available [facility] 4 19:06:54 Dysuria 52373828 Active 2022 Not Available [facility] 4 19:06:55 Chronic low back pain 878942750 Active 2022 Not Available [facility] 4 19:06:55 Low blood pressure 16320040 Active 2022 Not Available [facility] 4 19:06:55 Cobalamin deficiency 833533668 Active 2022 Not Available [facility] 4 19:06:54 Iron deficiency anemia 36934623 Active 2022 Not Available [facility] 4 19:06:55 Petechiae of skin 453027465 Active 2022 Not Available [facility] 4 19:06:55 Eruption 486143710 Active 2022 Not Available [facility] 4 19:06:55 Polymyalgi a rheumatica 77276672 Active 2022 Not Available [facility] 4 19:06:55 Psoriasis 1172151 Active 2023 Myke Astorga MD [address], [place], [address] , [facility] [employer] [facility] 4 13:52:49 Hypokalemi a 26766456 Active 2023 Myke Astorga MD [address], [place], [address] , [facility] 4 16:12:51 Cellulitis of upper limb 343267963 Active 2023 BERNARDO Mock [address], [address], [place], [address] , [employer] 4 15:52:28 Candidiasi s of skin 87575571 Active 2023 Vick BERNARDO Mckeon [address], [address], [place], [address] , [employer] 4 17:21:18 Recurrent urinary tract infection 714774321 Active 2024 BERNARDO Mock [address], [address], [place], [address] , [employer] 5 12:43:40 Problem Notes None recorded. Procedures Surgical History Date Name Laterality Status Provider Name and Address Organization Details Recorded Time 11/19/19 Medicare Wellness CPT Code, subsequent completed Suly Myers RN [place] [facility] 11/18/2024 14:05:51 Hysterectomy completed Not Available Counts include 234 beds at the [facility] 11/15/2022 04:44:18 Cholecystectomy completed Not Available Counts include 234 beds at the [facility] 11/15/2022 04:44:18 Cardiac Stent Placement completed Not Available [facility] 11/15/2022 04:44:18 Imaging Results Imaging Date Name Status LastModified by [facility] Details LastModified Time 08/21/2023 cardiac stress test completed [email or web address] [address], [place], [address], 01/25/2024 16:54:54 08/24/2023 US, echocardiogra m, transthoracic , complete [email or web address] [address], [place], [address], 08/28/2023 09:35:35 08/24/2023 US, doppler, venous completed [facility] [address], [place], [address], 09/12/2023 13:03:44 09/03/2024 CT, chest + abdomen + pelvis, w/o contrast completed [email or web address] [facility] [address], [place], [address], 11/18/2024 14:14:02 Procedure Notes None recorded. Medical Equipment None Reported. Allergies No known drug allergies Medications Name Sig Start Date Stop Date Status Note LastModified by Organization Details LastModified Time amoxicillin 500 mg capsule TAKE 1 CAPSULE BY MOUTH EVERY 8 HOURS UNTIL ALL GONE active Not Available Not Available No t Available atorvastati n 40 mg tablet TK 1 T PO QD 02/07 completed Not Available Not Available Not Available hydrocodone 7.5 mg-ibuprofe n 200 mg tablet 1 po q6 hours prn pain 06/01 completed Not Available Not Available Not Available betamethaso ne valerate 0.1 % topical ointment JANET TO LEFT ANKLE BID 06/04 completed Not Available Not Available Not Available Colace 100 mg capsule Take 1 capsule twice a day by oral route. 06/01 completed Not Available Not Available Not Available prednisone 10 mg tablet TAKE 1 TABLET BY MOUTH EVERY DAY 11/25 completed Not Available Not Available Not Available atorvastati n 20 mg tablet TAKE 1 TABLET BY MOUTH EVERY DAY active Not Available Not Available No t Available lisinopril 20 mg-hydrochl orothiazide 12.5 mg tablet TAKE 2 TABLETS BY MOUTH EVERY DAY 11/18 completed Not Available Not Available Not Available fluconazole 150 mg tablet Take 1 tablet every 72 hours by oral route. active Not Available Not Available No t Available valacyclovi r 1 gram tablet TAKE 1 TABLET BY MOUTH TWICE A DAY FOR 1 DAY active Not Available Not Available No t Available hydrocodone 5 mg-acetamin ophen 325 mg tablet TAKE 1 TABLET BY MOUTH EVERY 6 HOURS NEEDED active Not Available Not Available No t Available flurbiprofe n 0.03 % eye drops INSTILL 1 DROP 3 TIMES A DAY IN SURGICAL EYE 2 DAYS PRIOR TO SURGERY CONTINUE 2 WEEKS AFTER 11/18 completed Not Available Not Available Not Available ondansetron HCl 8 mg tablet TAKE 1 TABLET 3 TIMES A DAY BY ORAL ROUTE NEEDED. active Not Available Not Available No t Available famotidine 40 mg tablet TAKE 1 TABLET BY MOUTH EVERY DAY 11/18 completed Not Available Not Available Not Available prednisone 20 mg tablet TAKE 1 TABLET BY MOUTH DAILY IN THE MORNING WITH FOOD 11/18 completed Not Available Not Available Not Available isosorbide mononitrate ER 30 mg tablet,exte nded release 24 hr active Not Available Not Available Not Available clobetasol 0.05 % topical cream APPLY A THIN LAYER TOPICALLY TO THE AFFECTED AREAS 2 TIMES PER DAY NEEDED FOR 14 DAYS 04/25 completed Not Available Not Available Not Available ciprofloxac in 250 mg tablet TAKE 1 TABLET BY MOUTH EVERY 12 HOURS FOR 7 DAYS 04/25 completed Not Available Not Available Not Available amlodipine 5 mg tablet TAKE 1 TABLET (5 MG TOTAL) BY MOUTH DAILY. 11/18 completed Not Available Not Available Not Available allopurinol 100 mg tablet TAKE 1 TABLET BY MOUTH EVERY DAY active Not Available Not Available No t Available ciprofloxac in 500 mg tablet Take 1 tablet every 12 hours by oral route. 11/18 completed Not Available Not Available Not Available sulfamethox azole 800 mg-trimetho prim 160 mg tablet TAKE 1 TABLET BY MOUTH EVERY 12 HOURS FOR 7 DAYS 11/25 completed Not Available Not Available Not Available omeprazole 40 mg capsule,del ayed release TAKE 1 CAPSULE BY MOUTH EVERY DAY 11/18 completed Not Available Not Available Not Available tramadol 50 mg tablet TAKE 1 OR 2 TABLETS BY MOUTH EVERY 6 HOURS NEEDED FOR PAIN 02/13 completed Not Available Not Available Not Available acetaminoph en 500 mg tablet Take 2 tablets 3 times a day by oral route as needed for 90 days. 07/06 completed Not Available Not Available Not Available triamcinolo ne acetonide 0.1 % topical cream APPLY THIN LAYER EXTERNALL Y TO THE AFFECTED AREA TWICE DAILY NEEDED active Not Available Not Available No t Available simvastatin 40 mg tablet TAKE 1 TABLET AT BEDTIME active Not Available Not Available No t Available alprazolam 0.5 mg tablet TAKE ONE-HALF TO ONE TABLET BY MOUTH TWICE DAILY NEEDED FOR ANXIETY active Not Available Not Available No t Available amoxicillin 875 mg tablet 07/30 completed Not Available Not Available Not Available prednisolon e acetate 1 % eye drops,suspe nsion INSTILL 1 DROP 3 TIMES A DAY IN SURGICAL EYE STARTING AFTER SURGERY, CONTINUE FOR 3 WEEKS 04/25 completed Not Available Not Available Not Available hyoscyamine ER 0.375 mg tablet,exte nded release,12 hr TAKE 1 TABLET BY MOUTH EVERY 12 HOURS active Not Available Not Available No t Available prednisone 1 mg tablet PLEASE SEE ATTACHED FOR DETAILED DIRECTION S 11/18 completed Not Available Not Available Not Available ciprofloxac in 0.3 % eye drops INSTILL 1 DROP 3 TIMES A DAY IN SURGICAL EYE 2 DAYS PRIOR TO SURGERY CONTINUE 1 WEEK AFTER 04/25 completed Not Available Not Available Not Available Kenalog 10 mg/mL suspension for injection In office injection administe red by the provider 01/05 completed [facility]: [id number] Not Available Not Available Not Available amitriptyli ne 10 mg tablet TK 1 T PO D FOR 7 DAYS THEN INCREASE TO 2 TS PO D 06/01 completed Not Available Not Available Not Available phenazopyri dine 100 mg tablet TAKE 1 TABLET BY MOUTH THREE TIMES A DAY FOR 5 DAYS 04/25 completed Not Available Not Available Not Available baclofen 10 mg tablet TK 1 T PO QID 06/17 completed Not Available Not Available Not Available amlodipine 10 mg tablet TAKE 1 TABLET BY MOUTH EVERY DAY 06/20 completed Not Available Not Available Not Available prednisone 2.5 mg tablet 11/18 completed Not Available Not Available Not Available cephalexin 500 mg capsule Take 1 capsule twice a day by oral route for 7 days. 11/18 completed Not Available Not Available Not Available nystatin 100,000 unit/gram topical cream APPLY TOPICALLY TO AFFECTED AREA(S) TWICE DAILY NEEDED FOR RASH active Not Available Not Available No t Available ranitidine 150 mg tablet Take 1 tablet twice a day by oral route. active Not Available Not Available No t Available clotrimazol e-betametha sone 1 %-0.05 % topical cream APPLY TO AFFECTED AREA TWICE A DAY NEEDED FOR RASH 11/18 completed Not Available Not Available Not Available lansoprazol e 30 mg capsule,del ayed release TAKE 1 CAPSULE BY MOUTH EVERY DAY active Not Available Not Available No t Available lidocaine 5 % topical patch Apply by topical route for 30 days. 04/25 completed Not Available Not Available Not Available nystatin-tr iamcinolone 100,000 unit/g-0.1 % topical cream APPLY TO THE AFFECTED AREA(S) BY TOPICAL ROUTE 2 TIMES PER DAY IN THEMORNIN G AND EVENING prn 04/25/ 2023 active Not Available Not Available Not Avai lable nitroglycer in 0.[address] 1 TABLET UNDER THE TONGUE EVERY 5 MINUTES NEEDED FOR CHEST PAIN. active Not Available Not Available No t Available gabapentin 300 mg capsule TK ONE C PO QAM AND 2 CS PO QHS active Not Available Not Available No t Available lisinopril 20 mg-hydrochl orothiazide 25 mg tablet Take 1 tablet every day by oral route. 2012 active Not Available Not Available Not Avai lable aspirin 81 mg chewable tablet Chew 1 tablet every day by oral route. 07/06 completed Not Available Not Available Not Available diclofenac sodium 75 mg tablet,morgan yed release TAKE 1 TABLET BY MOUTH TWICE DAILY NEEDED 03/14 completed Not Available Not Available Not Available mupirocin 2 % topical ointment JANET TID 06/04 completed Not Available Not Available Not Available furosemide 20 mg tablet TAKE 1-2 TABLETS BY MOUTH EVERY DAY IN THE MORNING NEEDED FOR EDEMA active Not Available Not Available No t Available budesonide DR - ER 3 mg capsule,del ayed,extend ed release TAKE 3 CAPSULES BY MOUTH EVERY DAY active Not Available Not Available No t Available simethicone 166 mg capsule 1 po tid prn 06/17 completed Not Available Not Available Not Available methylpredn isolone 4 mg tablets in a dose pack Take as directed, finish all medicatio n 07/20 completed Not Available Not Available Not Available colchicine 0.6 mg tablet TAKE 2 TABLETS BY MOUTH AT ONSET OF SYMPTOMS THEN TAKE 1 TABLET ONE HOUR LATER 11/18 completed Not Available Not Available Not Available colestipol 1 gram tablet TAKE 1 TABLET BY MOUTH TWICE A DAY active Not Available Not Available No t Available imipramine 25 mg tablet Take 1 tablet every day by oral route. 06/12 completed Not Available Not Available Not Available doxycycline hyclate 100 mg tablet Take 1 tablet twice a day by oral route for 7 days. active Not Available Not Available No t Available dicyclomine 10 mg capsule TAKE 1 CAPSULE BY MOUTH 4 TIMES A DAY NEEDED 11/18 completed Not Available Not Available Not Available Estrace 0.01% (0.1 mg/gram) vaginal cream Insert 1 g 3 times a week by vaginal route as needed. 10/02 completed Not Available Not Available Not Available escitalopra m 10 mg tablet TK 1 T PO QD active Not Available Not Available No t Available escitalopra m 5 mg tablet TAKE 1 TABLET BY MOUTH EVERY DAY 11/01 completed Not Available Not Available Not Available hydrocodone 5 mg-ibuprofe n 200 mg tablet Take 1 tablet every 4 hours by oral route as needed. 06/01 completed Not Available Not Available Not Available nitrofurant oin monohydrate /macrocryst als 100 mg capsule TAKE 1 CAPSULE BY MOUTH EVERY 12 HOURS 11/18 completed Not Available Not Available Not Available duloxetine 20 mg capsule,del ayed release TAKE 1 CAPSULE BY MOUTH EVERYDAY AT BEDTIME 11/18 completed Not Available Not Available Not Available duloxetine 30 mg capsule,del ayed release active Not Available Not Available Not Available duloxetine 60 mg capsule,del ayed release 11/18 completed Not Available Not Available Not Available aspirin 2019 active Not Available Not Available Not Avai lable Prevacid 1 po qday 07/20 completed Not Available Not Available Not Available lidocaine (PF) 10 mg/mL (1 %) injection solution In office injection administe red by the provider 01/05 completed [facility]: [id number] [phone] [phone] Not Available Not Available Not Available febuxostat 40 mg tablet Take by oral route for 30 days. 03/07 completed Not Available Not Available Not Available Dexilant 60 mg capsule, delayed release active Not Available Not Available Not Available Linzess 145 mcg capsule Take 1 capsule every day by oral route. 11/18 completed Not Available Not Available Not Available potassium chloride ER 20 mEq tablet,exte nded release TAKE 1 TABLET BY MOUTH EVERY DAY active Not Available Not Available No t Available Fluzone High-Dose 2019- (PF) 180 mcg/0.5 mL intramuscul ar syringe PHARMACIS T ADMINISTE RED IMMUNIZAT ION ADMINISTE RED AT TIME OF DISPENSIN G 07/06 completed Not Available Not Available Not Available Sutab 1.479-0.188 -0.225 gram tablet Take as fdirected for bowel prep 10/04 completed Not Available Not Available Not Available Vitals Date Recorded Body height Body mass index (BMI) Body weight Body temperature Heart rate Oxygen saturation Oxygen saturation in Arterial blood by Pulse oximetry Systolic blood pressure Diastolic blood pressure Provider Name and Address Organization Details Last Updated DateTime 3 154.94 cm 27 kg/m2 08454.7 1 g 97.2 [degF] 54 /min 96 % 96 % 116 mm[Hg] 70 mm[Hg] Suly Myers RN [facility] [employer] [facility] 3 14:08:39 Date Recorded Body height Body mass index (BMI) Body weight Body temperature Heart rate Heart rate Oxygen saturation Oxygen saturation in Arterial blood by Pulse oximetry Systolic blood pressure Diastolic blood pressure Provider Name and Address Organization Details Last Updated DateTime 4 154.94 cm 27.2 kg/m2 56625.3 g 96.9 [degF] 107 /min 107 /min 98 % 98 % 122 mm[Hg] 82 mm[Hg] Maia Sultana RN [facility] [employer] [facility] 4 10:41:02 Date Recorded Body height Body mass index (BMI) Body weight Body temperature Heart rate Oxygen saturation Oxygen saturation in Arterial blood by Pulse oximetry Systolic blood pressure Diastolic blood pressure Provider Name and Address Organization Details Last Updated DateTime 4 154.94 cm 26.8 kg/m2 55410.1 2 g 97.6 [degF] 62 /min 97 % 97 % 124 mm[Hg] 80 mm[Hg] Suly Myers RN [facility] [employer] [facility] 4 12:52:59 Date Recorded Body height Body mass index (BMI) Body weight Body temperature Oxygen saturation Oxygen saturation in Arterial blood by Pulse oximetry Heart rate Systolic blood pressure Diastolic blood pressure Provider Name and Address Organization Details Last Updated DateTime 4 154.94 cm 25.9 kg/m2 31355.1 5 g 97.5 [degF] 96 % 96 % 70 /min 118 mm[Hg] 80 mm[Hg] Suly Myers RN [facility] [employer] [facility] 4 15:30:56 Date Recorded Body height Body mass index (BMI) Body weight Body temperature Heart rate Oxygen saturation Oxygen saturation in Arterial blood by Pulse oximetry Systolic blood pressure Diastolic blood pressure Provider Name and Address Organization Details Last Updated DateTime 5 154.94 cm 22.7 kg/m2 58677.0 8 g 97.5 [degF] 74 /min 98 % 98 % 136 mm[Hg] 82 mm[Hg] Suly Myers RN [place] [facility] [place] [email or web address] [facility] 14:09:43 Social History Question Answer Notes LastModified by Organization Details LastModified Time Tobacco Smoking Status Never Smoker Not Available [facility] 11/15/2022 04:43:07 Do You Have An Advance Directive? Yes MIGRATION.030 [id number] Information not available 11/15/2022 What Is Your Level Of Alcohol Consumption? None MIGRATION.0301 [id number] Information not available 11/15/2022 Are You Blind Or Do You Have Difficulty Seeing? No MIGRATION.0301 [id number] Information not available 11/15/2022 What Is Your Level Of Caffeine Consumption? Moderate MIGRATION.0301 [id number] Information not available 11/15/2022 How Much Tobacco Do You Chew? None MIGRATION.0301 [id number] Information not available 11/15/2022 In The 14 Days Before Symptom Onset, Have You Had Close Contact With A Laboratory-confi rmed COVID-19 While That Case Was Ill? No MIGRATION.0301 [id number] Information not available 11/15/2022 In The 14 Days Before Symptom Onset, Have You Had Close Contact With A Person Who Is Under Investigation For COVID-19 While That Person Was Ill? No MIGRATION.0301 [id number] Information not available 11/15/2022 Are You Deaf Or Do You Have Serious Difficulty Hearing? No MIGRATION.0301 [id number] Information not available 11/15/2022 What Type Of Diet Are You Following? REGULAR MIGRATION.0301 233746 Information not available 11/15/2022 Which Illicit Or Recreational Drugs Have You Used? NO MIGRATION.0301 442739 Information not available 11/15/2022 Do You Or Have You Ever Used E-cigarettes Or Vape? Never Used Electronic Cigarettes MIGRATION.0301 552799 Information not available 11/15/2022 What Is Your Occupation? RETIRED MIGRATION.0301 266473 Information not available 11/15/2022 Have There Been Any Changes To Your Family Or Social Situation? Yes Patient's Just . MIGRATION.0301 088324 Information not available 11/15/2022 Do You Use Insect Repellent Routinely? No MIGRATION.0301 875829 Information not available 11/15/2022 Where Do You Live? SingleLevelHouse MIGRATION.0301 [id number] Information not available 11/15/2022 What Was The Date Of Your Most Recent Tobacco Screening? 09/19/2022 MIGRATION.0301 169164 Information not available 11/15/2022 What Is Your Relationship Status? MIGRATION.0301 540440 Information not available 11/15/2022 Do You Have Smoke And Carbon Monoxide Detectors In Your Home? Yes MIGRATION.0301 [id number] Information not available 11/15/2022 Do You Or Have You Ever Used Smokeless Tobacco? Never Used Smokeless Tobacco MIGRATION.0301 512598 Information not available 11/15/2022 Do You Feel Stressed (tense, Restless, Nervous, Or Anxious, Or Unable To Sleep At Night)? [id number] MIGRATION.0301 282109 Information not available 11/15/2022 Do You Use Sunscreen Routinely? No MIGRATION.0301 084298 Information not available 11/15/2022 Has Tobacco Cessation Counseling Been Provided? No MIGRATION.0301 617624 Information not available 11/15/2022 Have You Recently Traveled Abroad? No MIGRATION.0301 932998 Information not available 11/15/2022 Do You Have Any Dietary Restrictions? No MIGRATION.0301 970462 Information not available 11/15/2022 Do You Or Have You Ever Used Any Other Forms Of Tobacco Or Nicotine? No MIGRATION.0301 701068 Information not available 11/15/2022 Sex: Unknown Functional Status Question Answer Note LastModified by Organizat ion Details LastModified Time Do you have difficulty walking or climbing stairs? No MIGRATION.[id number] 026 Information not available 11/15/2022 Do you have transportation difficulties? No MIGRATION.2661689 026 Information not available 11/15/2022 Are you able to walk? YESWOREST MIGRATION.9546085 026 Information not available 11/15/2022 Do you have difficulty doing errands alone? No MIGRATION.0824875 026 Information not available 11/15/2022 Are you able to care for yourself? Yes MIGRATION.3966266 026 Information not available 11/15/2022 Do you have difficulty dressing or bathing? No MIGRATION.6189005 026 Information not available 11/15/2022 What is your exercise level? None MIGRATION.2148317 026 Information not available 11/15/2022 Mental Status Question Answer Note LastModified by Organizat ion Details LastModified Time Do you have difficulty concentrating, remembering or making decisions? No MIGRATION.[id number] 6 Information not available 11/15/2022 Family History Relationship Description Onset Age of this Age Resolved Age Notes LastModified by Organization Details LastModified Time Father Coronary arterioscler osis MIGRATION.340 [id number] Not available 11/15/2022 04:44:27 Mother Malignant tumor of colon MIGRATION.446 [id number] Not available 11/15/2022 04:44:27 Mother Rheumatoid arthritis MIGRATION.648 [id number] Not available 11/15/2022 04:44:27 Medical History Condition Response BLINDNESS N RHEUMATIC FEVER N KIDNEY STONES N BLADDER PROBLEMS N MRSA N OTHER # 1 N POLIO N LUNG DISEASE/DISORDER N COPD N RADIATION / CHEMOTHERAPY N Other # 2 N BLOOD DISEASES N SURGERY N EAR OR HEARING PROBLEMS N MUMPS N FEMALE PROBLEMS / INFECTIONS N DEPRESSION (INCLUDING POST ) Y BOWEL PROBLEMS N STROKE/TIA N THYROID DISEASE N ULCERS N BENIGN PROSTATIC HYPERPLASIA N MEASLES N CERVICALGIA N TB SKIN TEST N MYOCARDIAL INFARCTION N OBESITY N PARAPELGIA N GERD/NAUSEA Y ANEURYSM N URINARY/BLADDER/KIDNEY PROBLEMS N CORONARY ARTERY DISEASE (CAD) Y MENIERE'S DISEASE N ADDICTION CONCERNS N ENDOMETRIOSIS N USE OF BLOOD THINNERS N SKIN PROBLEMS N EMPHYSEMA N GASTROINTESTINAL DISORDER N MUSCLE,JOINT OR BONE PROBLEMS N GASTROINTESTINAL BLEEDING N BLOOD CLOTS N ASTHMA N CATARACTS N ERECTILE DYSFUNCTION N GI PROBLEMS N CHF N Low Testosterone N NEUROPATHY N INFERTILITY N AIDS/HIV N FRACTURES N CHEMOTHERAPY / RADIATION N VISION/EYE PROBLEMS N LIVER DISEASE N MALE HYPOGONADISM N HYPERTENSION Y TOURETTE'S N ANXIETY DISORDER Y BLOOD TRANSFUSION N ANEMIA/BLOOD DISORDER N CHRONIC EAR INFECTIONS N BRONCHITIS N TUBERCULOSIS N GLAUCOMA N FOOT PROBLEM N DIVERTICULITIS N SLEEP APNEA N CHICKENPOX N ALLERGIES/HAYFEVER N INFECTIOUS DISEASE N PROSTATE N HEART ARRHYTHMIA N INSOMNIA N HIGH CHOLESTEROL / HYPERLIPIDEMIA Y EYE PROBLEMS N HYPERTHYROIDISM N EATING DISORDER N EDEMA N CHRONIC PAIN SYNDROME N CAROTID BLOCKAGE N CONSTIPATION N BACK / NECK PROBLEMS Y HAVE YOU BEEN HOSPITALIZED OR SEEN IN [facility] IN THE PAST YEAR ? N ATHEROSCLEROSIS N BREAST PROBLEMS N DIALYSIS N ECZEMA N FIBROMYALGIA N OSTEOPOROSIS N ARTHRITIS Y NO SIGNIFICANT PAST MEDICAL HISTORY N APPENDICITIS N DIABETES, TYPE N BAD TEETH N HEARTBURN / REFLUX N ADD/ADHD N AUTISM SPECTRUM DISORDER (ASD) N HEPATITIS / LIVER DISEASE N PULMONARY DISEASE N GOUT Y SLEEP DISORDER N ALZHEIMER'S DISEASE N PAIN N DEMENTIA N HERPES Y SEIZURES/EPILEPSY N HEADACHES/MIGRAINES N VASCULAR DISEASE N PACEMAKER N DIZZINESS N HEART DISEASE/HEART PROBLEMS N KIDNEY DISEASE N SCARLET FEVER N MULTIPLE SCLEROSIS N DEVELOPMENTAL OR BEHAVIORAL DISORDERS N MENTAL DISORDER/ILLNESS N CANCER: SPECIFY N CARDIAC ARRHYTHMIA N PNEUMONIA N ATRIAL FIBRILLATION N Gall Stones N PULMONARY EMBOLISM N AUTOIMMUNE DISEASE N Gynecological History Statement/Question Response How many live births 5 Current Control Method Menopause Breast Problems NO Obstetrics History GPAL:G 5 P 5 0 0 5 Type Value Full Term 5 Living 5 Total 5 Immunizations Vaccine Type Date Status Note Provider Nam e and Address Organization Details Recorded Time Influenza, high-dose, trivalent, PF 5 completed BERNARDO Mock [address] [place] [address], [facility] [address], [place], [address], [facility] [employer] 11/19/2024 09:15:40 pneumococcal polysaccharide PPV23 1 completed Not Available Counts include 234 beds at the [facility] 10/05/2023 19:06:55 Influenza, split virus, trivalent, preservative 2 completed Not Available Counts include 234 beds at the [facility] 10/05/2023 19:06:55 COVID-19, mRNA, LNP-S, PF, 100 mcg/0.5mL dose or 50 mcg/0.25mL dose 1 completed Not Available Counts include 234 beds at the [facility] 10/05/2023 19:06:55 COVID-19, mRNA, LNP-S, PF, 100 mcg/0.5mL dose or 50 mcg/0.25mL dose 1 completed Not Available Counts include 234 beds at the [facility] 10/05/2023 19:06:55 Influenza, high-dose, quadrivalent, PF 2 completed Not Available [facility] 10/05/2023 19:06:55 Influenza, high-dose, quadrivalent, PF 1 completed Not Available Counts include 234 beds at the [facility] 10/05/2023 19:06:55 Influenza, high-dose, quadrivalent, PF 0 completed Not Available [facility] 10/05/2023 19:06:55 Influenza, high-dose, trivalent, PF 8 completed Not Available [facility] 10/05/2023 19:06:55 Influenza, high-dose, trivalent, PF 7 completed Not Available Counts include 234 beds at the [facility] 10/05/2023 19:06:55 Influenza, high-dose, trivalent, PF 6 completed Not Available Counts include 234 beds at the [facility] 10/05/2023 19:06:55 Influenza, split virus, quadrivalent, PF 4 completed Not Available Counts include 234 beds at the [facility] 10/05/2023 19:06:56 Pneumococcal conjugate PCV 13 6 completed Not Available Counts include 234 beds at the [facility] 10/05/2023 19:06:55 Influenza, split virus, quadrivalent, PF 5 completed Not Available Counts include 234 beds at the [facility] 10/05/2023 19:06:56 Influenza, split virus, trivalent, PF 4 completed Not Available Counts include 234 beds at the [facility] 10/05/2023 19:06:56 Influenza, high-dose, quadrivalent, PF 3 completed Suly Myers RN [facility], [place] - [facility] 07/16/2023 10:25:42 Past Encounters Encounter ID Performer Location Encounter Start Date Encounter Closed Date Diagnosis/Indication Diagnosis SNOMED-CT Code Diagnosis ICD10 Code Diagnosis Note [id number] [facility] [place] [address] [place] [address] [address] [place] [address] 01/05/2021 00:00:00 01/05/2021 11:37:30 [id number] [facility] [place] [address] [place] [address] [address] [place] [address] 03/03/2021 00:00:00 03/03/2021 11:23:28 [id number] [facility] [place] [address] [place] [address] [address] [place] [address] 04/05/2021 00:00:00 04/05/2021 12:40:32 [id number] [facility] [place] [address] [facility] [address] [place] [address] 06/20/2021 00:00:00 06/20/2021 18:42:36 [id number] [facility] [place] [address] [place] [address] 07/06/2021 00:00:00 07/07/2021 07:41:51 [id number] _RAFAT_M IGRATION_ DEFAULT_1 _1 , 08/24/2021 00:00:00 08/24/2021 13:01:32 [id number] [facility] [place] [address] [place] [address] 11/01/2021 00:00:00 11/14/2021 17:37:41 [id number] [facility] [place] [address] [place] [address] 01/30/2022 00:00:00 02/14/2022 08:37:22 [id number] [facility] [place] [address] [place] [address] 03/13/2022 00:00:00 03/13/2022 19:27:47 [id number] [facility] [place] [address] [place] [address] 03/23/2022 00:00:00 03/23/2022 11:26:34 [id number] [facility] [place] [address] [place] [address] 04/13/2022 00:00:00 04/13/2022 12:15:33 [id number] [facility] [place] [address] [place] [address] 06/20/2022 00:00:00 06/20/2022 11:36:40 [id number] [facility] [place] [address] [place] [address] 09/20/2022 00:00:00 09/21/2022 09:35:35 [id number] [facility] [place] [address] [place] [address] 11/01/2022 00:00:00 11/12/2022 19:09:30 [id number] Myke Astorga MD [facility] Primary Care [facility] [address] [facility] [address] [place] [address] 11/27/2022 14:39:23 11/27/2022 15:18:43 Dyspnea 772043873 R06.00 sob with standing/w alkingchec k echo and cxrbnp ordered Edema of l ower extremity 713857743 R60.0 elevate when possibleUS doppler negative for DVTfurosem michelle 20 mg 1-2 tabs in AMcheck labs on Sundayf/u in 2 weeks or sooner if needed Hyperuricemia 04123565 E 79.0 no sign of active gout attack, will monitor renal function closely and start maintenanc e med at next appt pending lab results [id number] Myke Astorga MD [facility] Primary Care [facility] [address] [facility] [address] [place] [address] 12/04/2022 12:23:42 12/04/2022 15:12:47 [id number] Myke Astorga MD [facility] [address] [place] [address] [address] [place] [address] 12/12/2022 17:29:15 12/12/2022 18:02:24 Dyspnea 407773127 R06.00 bnp normaledem a stableecho upcoming [id number] [facility] [address] [facility] [address] [place] [address] 01/09/2023 12:01:46 01/09/2023 12:30:21 Angular cheilitis 041797664 K13.0 Herpes labialis 3224495 B00.1 Essential hypertension 68904230 I10 bp noted to be low todayshe continues to have fatiguecut amlodipine in 1/2f/u in 4 weeks Aortic liu ve sclerosis 46290594 I35.8 reviewed results, no findings to account for her fatiguerep eat echo in 1 year [id number] Myke Astorga MD [facility] [address] [facility] [address] [place] [address] 02/13/2023 10:01:23 02/13/2023 10:24:10 Low back pain 196882109 M54.50 xray hip/pelvis /lumbar spine if no improvemen t by Sundaypred nisone taper with foodhydroc odone/apap prn severe pain, do not drive, may cause confusion and increase risk of falls Gout 75815305 M10.9 cannot tolerate allopurino ltrial of uloric 40 mg dailyf/u in 4 weeks [id number] Myke Astorga MD [facility] Primary Care [address] [place] [address] 03/14/2023 15:17:49 03/14/2023 16:42:39 Dysuria 37688218 R30.0 R30.9 Patient was started on antibiotic and advised to increase water intake. Chronic low back pain 27 2512179 M54.50 Declines PT. Continue using heating pad. Will try lidocaine patch. Low blood pressure 25694 003 I95.9 Will try to take 1 tab of furosemide per day instead of 2. Discontinu e use of norvasc. F/u in 1 month Cobalamin deficiency 190 899539 E53.8 Iron defic iency anemia 27715656 D50.9 [id number] Myke Astorga MD [facility] Care [address] [place] [address] 04/25/2023 15:30:45 04/25/2023 16:11:08 Low blood pressure 40826542 I95.9 remain off amlodipine d/c lisinopril check labsf/u in 2 weeks or sooner if needed Cobalamin deficiency 190 884491 E53.8 Iron defic iency anemia 75232214 D50.9 Petechiae of skin 470490 004 R23.3 Eruption 827154839 R21 [id number] Myke Astorga MD [facility] Care [address] [address] 05/09/2023 17:11:37 05/11/2023 15:07:46 Gastroesophageal reflux disease without esophagitis 090919764 K21.9 Continue omeprazole Eat small, frequent mealsFamot idine 40 mg dailyPredn isone being decreased as noted above Serum crea tinine above reference range 583528807 R79.89 Polymyalgi a rheumatica 64908388 M35.3 Significan t improvemen t in joint pain, stiffness and mobility but having s/e including edema, irritabili ty, poor sleep and GERDDecrea se prednisone to 20 mg daily and call on Sunday with update, will wean further depending on symptoms Chest pain 88079348 R07. 9 EKG showed no acute changesPai n likely related to GERD, but strict precaution s were given to be seen in ER [facility] if any worsening or changing symptoms [id number] Myke Astorga MD [facility] Primary Care [address] [place] [address] 07/16/2023 09:45:42 07/16/2023 11:37:08 Polymyalgia rheumatica 15553585 M35.3 Significan t improvemen t in joint pain, stiffness and mobility but having s/e including edema, irritabili ty, poor sleep and GERDRestar t prednisone at lower dose 10 mg and call with update in 1 week Administra tion of influenza vaccine 51964988 Z23 [id number] Myke Astorga MD [facility] Primary Care [address] [place] [address] 08/23/2023 14:01:18 08/23/2023 14:39:43 Eruption 724093776 R21 refill given Herpes labialis 2185099 B00.1 refill given Cobalamin deficiency 190 889653 E53.8 Essential hypertension 43171914 I10 stable Hyperlipidemia 18628367 E78.5 Z79.899 Iron defic iency anemia 22157225 D50.9 Polymyalgi a rheumatica 05976289 M35.3 stable on prednisone 10 mg dailyrepea t ESRf/u in 3 months [id number] Myke Astorga MD [facility] Primary Care [address] [place] [address] 11/26/2023 10:31:55 11/26/2023 10:55:21 Polymyalgia rheumatica 13187673 M35.3 stable on prednisone 10 mg dailyrepea t ESRf/u in 3 months 11/26/23: not in good controlinc rease prednisone 20 mg dailyf/u in 4 weeks or sooner if needed Eruption 577969133 R21 increase prednisone as aboveclobe tasol cream bid for up to 14 days prnhas upcoming appt with dermatolog y [id number] Myke Astorga MD [facility] Primary Care [facility] [address] [facility] [address] [place] [address] 01/01/2024 12:48:17 01/01/2024 13:22:34 Cobalamin deficiency 287932221 E53.8 Essential hypertension 16156368 I10 Dysuria 57933706 R30.0 R30.9 Polymyalgi a rheumatica 75732629 M35.3 stable on prednisone 10 mg dailyrepea t ESRf/u in 3 months 11/26/23: not in good controlinc rease prednisone 20 mg dailyf/u in 4 weeks or sooner if needed 01/01/24: recheck labscontin ue prednisone , but could consider decreasing down to 15 mg. Symptoms were not in good control on 10 mg daily and she is having some s/e to 20 mg dailyshe will think about it and call if she wants to adjust [id number] [facility] Primary Care [address] [place] [address] 04/25/2024 15:25:23 04/25/2024 15:59:38 Gout 95449803 M10.9 Polymyalgi a rheumatica 87087375 M35.3 Referral needed 42203414 9 Z76.89 Cellulitis of upper limb 867230687 L03.354 [id number] BERNARDO Mock [facility] Primary Care [facility] [address] [facility] [address] [facility] [place] [address] 11/18/2024 14:03:52 11/18/2024 14:34:08 Adult health examination 411505363 Z00.00 Screening for disorder 784375007 Z13.9 Cobalamin deficiency 190 879635 E53.8 Coronary arteriosclerosis 17008801 I25.10 R06.00 Continues to follow cardiology , has upcoming ECHO. Depressive disorder [id number] F32.A Essential hypertension [id number] I10 136/82Cont inues to follow cardiology . Gastroesop hageal reflux disease without esophagitis [id number] K21.9 Hyperlipidemia 14133133 E78.5 Z79.899 Iron defic iency anemia 75660957 D50.9 Osteoarthritis [id number] M19.90 Polymyalgi a rheumatica 04194848 M35.3 [place], [place] 04/25/24UDS UTDlast appt: 04/25/24 Administra tion of influenza vaccine [id number] Z23 Herpes labialis 6736317 B00.1 Diabetes m ellitus screening [id number] Z13.1 Health Concerns Section Related Observation LastModified by Organization Detai ls LastModified Time None Recorded Concern Status LastModified by Organization Details LastModified Time None Recorded Advance Directives Directive Y: Payers Encounter Date Sequence Insurance Name Policy Number Policy Oh Covered Member ID Oh Member ID Guarantor Name 08/23/2023 1 [place] Kelly Chan [id number] Kelly Chan 11/26/2023 1 [place] [id number] Kelly Chan 01/01/2024 1 [place] Chan [id number] Kelly Chan 04/25/2024 1 [place] Chan [id number] Kelly Chan 11/18/2024 1 [place] Chan [id number] Kelly Dieter Chan Notes Date Note Type Note Provider Name and Address Organization Details Recorded Time 08/23/2023 text/html Chest pain since this AM located in left chest, radiates to the back. Comes and goes all day, can last up to a 1/2 hour. Feels similar to GERD she has had in the past. Nothing makes it worse. Pain is mild, no dizziness but vision got blurry. She has had GERD/indigestion all day and took zofran earlier today due to nausea. Ankles are a bit more swollen since being on steroids and she feels irritable, can't sleep well. Her joint pain, stiffness and mobility are significantly improved. update 07/16/23: She d/c her prednisone due to fogginess and feeling that something felt funny with her face. Last dose was or Sunday. She had immediate pain and her mobility is now very poor. update 08/23/23: tolerating prednisone 10 mg daily which is helping joint pain and mobility. Myke Astorga MD [address], [place], [address], [facility] 09/13/2023 09:12:45 11/26/2023 text/html Had diarrhea for several days and is trying to get back to baseline. She is able to eat and drink ok. She has recurrent itchy/burning rash on her arms and occasionally on legs, shoulder, neck. Diclofenac gel does seem to help when she puts it on her joints. Her daily prednisone is not helpful. Myke Astorga MD [address], [place], [address], [facility] 12/13/2023 07:42:36 01/01/2024 text/html Had diarrhea for several days and is trying to get back to baseline. She is able to eat and drink ok. She has recurrent itchy/burning rash on her arms and occasionally on legs, shoulder, neck. Diclofenac gel does seem to help when she puts it on her joints. Her daily prednisone is not helpful. 01/01/24: had an episode of food poisoning/gastroenterit is and was sick for about a week and was off prednisone for 3 or so days and noticed that she couldn't walk easily. She does note that prednisone is helpful for her pain but makes her feel rollins. Myke Astorga MD [address], [place], [address], [facility] 02/03/2024 17:26:06 04/25/2024 text/html Patient is an 78 year old female that presents to the office for follow up. Patient reports she has rash on bilateral arms, as well as blood blisters. Patient reports this has been ongoing for months. Patient reports she was referred to dermatology who told her it was likely Lupus and she should follow up with Rheumatology.Patient also reports the dorsal aspect of her hands ache all the time and the palms of her hands burn. Patient also reports gout flare up 2 to 3 weeks ago. Patient is still taking her daily Allopurinol. Patient denies changes to her diet that could have caused the flare. Patient also reports intermittent shortness of breath for a while. Patient reports she has been evaluated by cardiology and believes it is anxiety. BERNARDO Mock [address], [address], [place], [address], [facility] 04/25/2024 16:31:24 11/18/2024 text/html Patient is an 79 year old female that presents to the office for Medicare Wellness. Patient is accompanied by daughter. Patient reports she is doing well and has no concerns at this time. Patient continues to see Vibration Engineer (Georgiana Lopez)-is going to be getting a colonoscopy on 12/16/24 due to bacterial build up in colon. Patient recently finished 12 weeks of Xifaxan however symptoms did not improve. Patient followed up [facility] for her annual appointment and is going to be getting an echo in the next few weeks. Patient denies any cardiac symptoms at this time including chest pain and shortness of breath. Patient continues to see Conductor Orchestra (Dr. Mirza)-was seeing him every 6 weeks however she is now set up to see him every 4 months. Patient had her infusion yesterday for Osteoporosis. [id number] neededMammogram- declinesColonoscopy- on 12/16/24Flu- orderedCovid- UTDTdap- UTDShingles- UTDPneumo- UTD BERNARDO Mock [address], [address], [place], [address], [facility] 11/19/2024 09:18:28 OBGyn Episode No OBEpisode recorded.
--- OUTSIDE RECORDS SUMMARY | 2024-12-16 02:36 | XMS_ITS | Encounter Summary ---
Author Organization [facility] Address [address] [place] [address] Phone Care Team Providers Care Tank Washer Name Role Phone Fatimah Astorga MD Primary Care Provider + Encounter Details Date Type Department Care Team (Latest Contact Info) Description 07/15/2021 Orders Only [facility] Scanning, Provider Social History Tobacco Use Types Packs/Day Years Used Date Smoking Tobacco: Never Smokeless Tobacco: Never Comments Unknown Sex and Gender Information Value Date Recorded Sex Assigned at Not on file 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 Gender Identity Not on file Sexual Orientation Not on file documented as of this encounter Plan of Treatment Not on file documented as of this encounter Procedures Procedure Name Priority Date/Time Associated Diagnosis Comments CARDIOLOGY DOCUMENT SCAN 07/15/2021 documented in this encounter Results * SCAN - CARDIOLOGY (07/15/2021) Anatomical Region Laterality Modality Other us Provider Scanning [facility] CARDIAC SERVICES PROCEDURES Final Result documented in this encounter Visit Diagnoses Not on filedocumented in this encounter Care Teams Tank Washer Relationship Specialty Start Date End Date Fatimah Astorga MD PCP - General 04/23/17 documented as of this encounter
--- OUTSIDE RECORDS SUMMARY | 2024-12-16 02:37 | XMS_ITS | Clinical Summary ---
Author Organization [facility] Address [address] [place] [address] Care Team Providers Care Clothes Shaker Name Role Phone Luzma Hernandez FLOSSER-CODING COORDINATOR Primary Care Provider + Source Comments [facility],non-owned Affiliates and Associated Physician Practices is amultiple site organization consisting of ambulatory clinics and hospital sitesin [place], [place], [place] and [place]. This disclosure is being madepursuant to the Care Everywhere program and may not contain all information available regarding this patient. Last updated 18.[facility] Allergies Active Allergy Reactions Criticality Noted Date Comments Morphine Anaphylaxis High 08/14/2023 Reaction: ANAPHYLAXIS, Medications * Be aware that medications may not be up to date on this document. Alwaysverify current medications with the patient. Medication Sig Dispensed Refills Start Date End Date Status allopurinol (Zyloprim) 100 MG tablet Take 1 (one) tablet by mouth once daily 03/07/2023 Active amLODIPine (Norvasc) 5 MG tablet Take 1 (one) tablet by mouth once daily 10/11/2023 Active atorvastatin (Lipitor) 20 MG tablet Take 1 (one) tablet by mouth once daily Active clobetasol (Temovate) 0.05 % cream APPLY A THIN LAYER TOPICALLY TO THE AFFECTED AREAS 2 TIMES PER DAY NEEDED FOR 14 DAYS 03/06/2024 Active clotrimazole-bet amethasone (Lotrisone) 1-0.05 % cream APPLY TO AFFECTED AREA TWICE A DAY NEEDED FOR RASH Active colchicine 0.6 MG tablet TAKE 2 TABLETS BY MOUTH AT ONSET OF SYMPTOMS THEN TAKE 1 TABLET ONE HOUR LATER Active dicyclomine (Bentyl) 10 MG capsule Take 1 (one) capsule by mouth 4 times daily as needed Active furosemide (Lasix) 20 MG tablet TAKE 1-2 TABLETS BY MOUTH EVERY DAY IN THE MORNING NEEDED FOR EDEMA 03/22/2023 Active HYDROcodone-acet aminophen ([place]) 5-325 MG tablet Take 1 (one) tablet by mouth every 6 hours as needed Active nitroGLYCERIN (Nitrostat) 0.[address] 1 TABLET UNDER THE TONGUE EVERY 5 MINUTES NEEDED FOR CHEST PAIN. 06/01/2023 Active omeprazole (PriLOSEC) 40 MG capsule Take 1 (one) capsule by mouth once daily Active potassium chloride ER (K-TAB) 20 MEQ tablet Take 1 (one) tablet by mouth once daily Active triamcinolone acetonide (Kenalog) 0.1 % cream APPLY THIN LAYER EXTERNALLY TO THE AFFECTED AREA TWICE DAILY NEEDED Active predniSONE (Deltasone) 20 MG tabletIndication s:History of polymyalgia rheumatica Take 0.5 (one-half) tablet by mouth as directed Use as needed to lower daily dose weekly by 2.5 mg less (to be used in combination with available 2.5 mg and 10 mg tablets). 05/15/2024 Active predniSONE (Deltasone) 10 MG tabletIndication s:History of polymyalgia rheumatica Take 0.5 (one-half) tablet by mouth as directed Use as needed to lower daily dose weekly by 2.5 mg less (to be used in combination with available 2.5 mg and 20 mg tablets). 05/15/2024 Active DULoxetine (Cymbalta) 60 MG capsuleIndicatio ns:Fibromyalgia Syndrome,Musculo skeletal Pain,Spinal pain Take 1 (one) capsule by mouth at bedtime Replaces use of 30 mg capsules. Reasons: Fibromyalgia Syndrome, Musculoskeletal Pain, Spinal pain 30 capsule 11 10/06/2024 Active budesonide (Entocort EC) [address] capsule Take 3 (three) capsules by mouth once daily 10/28/2024 Active valACYclovir (Valtrex) 1 GM tablet TAKE 1 TABLET BY MOUTH TWICE A DAY FOR 1 DAY 11/18/19 Discontinu ed(List Clean-Up) Active Problems Problem Noted Date Diagnosed Date Age-related osteoporosis wit hout current pathological fracture 10/06/2024 Spinal column pain 08/11/2024 Assessment & Plan (08/11/2024 1:40 PM SUPERINTENDENT GREENS): No prior outside xrays to review but most current [facility] identified scoliosis, advanced degenerative disc and spinal arthritis and also grade 1 L4-5 spondylolisthesis but otherwise without anything to unexplain weight loss. Weight loss, non-intentional 08/11/2024 Overview (08/11/2024): 50 pound unintended weight loss over past 12 months of uncertain cause. Chronic low back pain and frequent loose BMs (previous diagnosis of IBS). Spondylolisthesis of lumbar region (L4-5 level grade 1 anterolisthesis) 08/11/2024 Degeneration of intervertebr al disc of lumbar region with discogenic back pain 08/11/2024 Thoracic degenerative disc disease 08/11/2024 Other idiopathic scoliosis, thoracolumbar region 08/11/2024 Fibromyalgia 07/01/2024 Assessment & Plan (07/01/2024 4:52 PM CDT): Kelly Chan is a 78 year old female with painful trigger points on numerous locations on muscles all over her body. This is most consistent with fibromyalgia. - Start taking duloxetine 20 mg at bedtime. - Follow up with Dr. Mirza in 6 weeks. Chronic low back pain without sciatica Overview (05/15/2024): No prior xrays to review. Follow up with PCP for mechanical non-inflammatory low back pain symptoms. Steroid purpura 05/15/2024 Assessment & Plan (07/01/2024 4:55 PM CDT): Improving with decreased prednisone. Will monitor at next f/u in 6 weeks. - Start slow steroid taper of 8 weeks. 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 Resolved Problems Problem Noted Date Diagnosed Date Resolved Date History of polymyalgia rheumatica (PMR) 05/15/2024 10/06/2024 Overview (05/15/2024): Unable by history or available records to confirm prior Dx of PMR. Needs to be slowly tapered off prednisone to avoid adrenal insufficiency. Assessment & Plan (07/01/2024 4:40 PM CDT): Given overall presentation for joint pain location mainly affecting, normal ESR, PmR is not suspected at this time. - ESR and CRP ordered, will follow up on these labs parts counterman (current) use of systemic steroids 10/06/2024 Overview (05/15/2024): At risk for steroid related complications (osteoporosis, infection including pneumocystis, Shingles, steroid myopathy weakness, elevated cholesterol, etc). Assessment & Plan (07/01/2024 4:45 PM CDT): Aside from the steroid purpurae diagnosed at last visit and improving since going down on prednisone, Kelly Chan is complaining of back pain and proximal muscle weakness which can occur with prolonged glucocorticoid therapy. - Will follow up on X-rays of thoracic and lumbar spine to assess for possible compression fractures. - Patient to schedule DEXA scan to assess for suspected osteoporosis. - Slow steroid taper over eight weeks. Encounters Date Type Department Care Team Description 11/17/2024 1:30 PM SUPERINTENDENT GREENS - 11/17/2024 11:59 PM SUPERINTENDENT GREENS Hospital Encounter [facility] [address] [address] Cal Mirza DO Rheumatology Discharge Disposition: Home or Self Care 11/17/2024 Travel 11/14/2024 Telephone [facility] [address] [address] Cal Mirza DO 10/10/2024 Telephone [facility] - Rheumatology [address], [address] [place] [address] Cal Mirza DO Update 10/06/2024 1:00 PM SUPERINTENDENT GREENS Office Visit [facility] - Rheumatology [address], [address] [place] [address] Cal Mirza DO Fibromyalgia (Primary Dx); Age-related osteoporosis without current pathological fracture; Weight loss, non-intentional 09/30/2024 Orders Only [facility] - Rheumatology [address], [address] [place] [address] Cal Mirza DO alf (current) use of systemic steroids from Last 3 Months Social History Tobacco Use Types Packs/Day Years Used Date Smoking Tobacco: Never Assessed PHQ-2 Answer Date Recorded Patient Health Questionnaire-2 Score 1 10/06/2024 Sex and Gender Information Value Date Recorded Sex Assigned at Not on file Gender Identity Not on file Sexual Orientation Not on file Last Filed Vital Signs Vital Sign Reading Time Taken Comments Blood Pressure 112/58 11/17/2024 2:22 PM SUPERINTENDENT GREENS Pulse 58 11/17/2024 2:22 PM SUPERINTENDENT GREENS Temperature 36.3 C (97.3 F) 11/17/2024 2:22 PM SUPERINTENDENT GREENS Respiratory Rate 16 11/17/2024 2:22 PM SUPERINTENDENT GREENS Oxygen Saturation 95% 10/06/2024 1:00 PM SUPERINTENDENT GREENS Inhaled Oxygen Concentration - - Weight 54.7 kg (120 lb 9.6 oz) 11/17/2024 1:45 P M SUPERINTENDENT GREENS Height 160 cm (5' 3 ) 05/15/2024 1:47 PM CDT Body Mass Index 21.36 05/15/2024 1:47 PM CDT Plan of Treatment Upcoming Encounters Date Type Department Care Team (Late st Contact Info) Description 04/06/2025 1:00 PM CDT Office Visit [facility] - Rheumatology [address], [address] [place] [address] Cal Mirza DO [address] [place] [address] [address] [place] [address] Health Maintenance Due Date Last Done Comments MEDICARE AWV 12 MONTHS 1943 DTAP/TDAP/TD VACCINES (1 - Tdap) 1962 PNEUMOCOCCAL VACCINE 50+ (1 of 1 - PCV) 1993 ZOSTER VACCINE (1 of 2) 1993 Respiratory Syncytial Virus (RSV) Vaccine Pt: or over 60 yrs (1 - 1-dose 75+ series) 2018 COVID-19 VACCINE ( season) 2024 12/31/2020, 12/03/2020 INFLUENZA VACCINE (#1) 2024 8, 07/02/2017, 08/31/2016, Additional history exists BONE DENSITY TESTING Completed 09/29/2024 DEPRESSION SCREENING Completed 10/06/2024 HEPATITIS B VACCINE Aged Out No longe r eligible based on patient's age to complete this topic HIB VACCINE Aged Out No longer eligi ble based on patient's age to complete this topic HPV VACCINE Aged Out No longer eligi ble based on patient's age to complete this topic MENINGOCOCCAL (Group B) VACCINE SHARED DECISION-MAKING Aged Out No longer eligible based on patient's age to complete this topic MENINGOCOCCAL GROUPS A/C/Y/W VACCINE Aged Out No longer eligible based on patient's age to complete this topic Procedures Procedure Name Priority Date/Time Associated Diagnosis Comments COMPREHENSIVE METABOLIC PANEL Routine 11/07/2024 1:45 PM SUPERINTENDENT GREENS High risk medication use DEXA BONE DENSITY AXIAL SKELETON Routine 09/29/2024 parts counterman (current) use of systemic steroids from Last 3 Months Results * (ABNORMAL) COMPREHENSIVE METABOLIC PANEL (11/07/2024 1:45 PM SUPERINTENDENT GREENS) Glucose 92 70 - 99 mg/dL [facility] INSURANCE BILL BUN 11 8 - 27 mg/dL [facility] INSURANCE BILL Creatinine 1.06(H) 0.57 - 1.00 mg/dL [facility] INSURANCE BILL eGFR by CKD-EPI 53(L) >59 mL/min/1.7 3 [facility] INSURANCE BILL BUN/Creatinine Ratio 10(L) 12 - 28 [facility] INSURANCE BILL Sodium 142 134 - 144 mmol/L [facility] INSURANCE BILL Potassium 3.6 3.5 - 5.2 mmol/L [facility] INSURANCE BILL Chloride 100 96 - 106 mmol/L [facility] INSURANCE BILL CO2 23 20 - 29 mmol/L [facility] INSURANCE BILL Calcium 9.0 8.7 - 10.3 mg/dL [facility] INSURANCE BILL Protein Total 6.5 6.0 - 8.5 g/dL [facility] INSURANCE BILL Albumin 3.9 3.7 - 4.7 g/dL [facility] INSURANCE BILL Globulin Total 2.6 1.5 - 4.5 g/dL [facility] INSURANCE BILL Bilirubin Total 0.5 0.0 - 1.2 mg/dL [facility] INSURANCE BILL Alkaline Phosphatase 78 44 - 121 IU/L [facility] INSURANCE BILL AST 18 0 - 40 IU/L [facility] INSURANCE BILL ALT 6 0 - 32 IU/L [facility] INSURANCE BILL Blood BLOOD SPECIMEN / Unknown 11/07/2024 1:45 PM SUPERINTENDENT GREENS 11/07/2024 Narrative [facility] INSURANCE BILL - 11/08/2024 7:09 AM SUPERINTENDENT GREENS Performed at: 01 - [facility] [address] [place], [place] [id number] Coal Washer: Manfred Atkins PhD, Phone: [phone] Cal Mirza DO LAB - CHEMISTRY EDGAR COOMBS [facility] INSURANCE BILL [address] [place] [address] * DEXA BONE DENSITY AXIAL SKELETON (09/29/2024) Anatomical Region Laterality Modality Other Cal Mirza DO DEXA ORDERABLES from Last 3 Months Care Teams Clothes Shaker Relationship Specialty Start Date End Date Luzma Hernandez, FLOSSER-CODING COORDINATOR [address] [place] [address] PCP - General Family Medicine 05/02/24
--- OUTSIDE RECORDS SUMMARY | 2024-12-16 02:37 | XMS_ITS | CONTINUITY OF CARE DOCUMENT ---
Author Name janie lima Address Unknown Organization [facility] Address [address] [place] [address] Phone [phone] Care Team Providers Care Senior Storage Administrator Name Role Phone Niki CHUN, Rafi Unavailable [phone] MYKE ZHAO MD Unavailable MYKE ZHAO MD Unavailable [phone] PROBLEMS Condition Status Date Provider Notes Cardiology examination active Rafi Prince MD Family History of CVA or Stroke: active Humberto Prince MD Family History of CVA or Stroke: active Humberto Prince MD Hyperlipidemia active Rafi Prince MD Hypertension active Rafi Prince MD Abdominal aortic aneurysm active Rafi jones MD CAD (coronary artery disease) active Rafi Prince MD Edema active Rafi Prince MD ENCOUNTERS Date Type Provider Location Encounter Diag nosis - In-person encounter Office Visit Rafi Prince MD [facility] - In-person encounter Office Visit Rafi Prince MD [facility] Edema - In-person encounter Office Visit Rafi Prince MD [facility] - In-person encounter Office Visit Rafi Prince MD [facility] - In-person encounter Office Visit Rafi Prince MD [facility] Cardiology examinationFamily History of CVA or Stroke:Family History of CVA or Stroke:HyperlipidemiaHyp ertensionAbdominal aortic aneurysmCAD (coronary artery disease) VITAL SIGNS Date Observation Value Provider Body Mass Index (Ratio) 20.55 kg/m2 Nii Prince MD blood pressure, diastolic 70 mm[Hg] Brenna connell Ruple blood pressure, systolic 88 mm[Hg] Wendi la [facility] oxygen saturation, oximetry 98 % [place] [facility] pulse rate 97 /min [place] [facility] blood pressure, cuff size regular Brenna connell [facility] weight E&M 116 [lb_av] [place] [facility] height E&M 63 [in_i] [place] [facility] Body Mass Index (Ratio) 25.68 kg/m2 Annabel Bajwa blood pressure, cuff size regular Ja rret blood pressure, diastolic 81 mm[Hg] Ja rret blood pressure, systolic 139 mm[Hg] Jar ret pulse rate 79 /min Alvaro erda y respiratory rate E&M 12 /min Alvaro oxygen saturation, oximetry 98 % Alvaro weight E&M 145 [lb_av] Alvaro er y height E&M 63 [in_i] Alvaro erda y Body Mass Index (Ratio) 25.51 kg/m2 Nii Prince MD blood pressure, cuff size regular Ja rret blood pressure, diastolic 86 mm[Hg] Ja rret blood pressure, systolic 136 mm[Hg] Jar ret pulse rate 88 /min Alvaro erda y respiratory rate E&M 12 /min Alvaro oxygen saturation, oximetry 97 % weight E&M 144 [lb_av] Alvaro y height E&M 63 [in_i] Alvaro y Body Mass Index (Ratio) 27.63 kg/m2 Nii Prince MD blood pressure, diastolic 65 mm[Hg] Ri ivan Mcdaniel blood pressure, systolic 94 mm[Hg] Ryder dayan Mcdaniel blood pressure, cuff size regular Júnior Mcdaniel pulse rate 67 /min Dianne campuzano oxygen saturation, oximetry 97 % Dianne Mcdaniel respiratory rate E&M 16 /min Javier Mcdaniel weight E&M 156 [lb_av] Dianne campuzano height E&M 63 [in_i] Dianne campuzano Body Mass Index (Ratio) 28.87 kg/m2 Nii Prince MD blood pressure, diastolic 68 mm[Hg] Marixa nkLogic blood pressure, systolic 118 mm[Hg] Cecilia kLogic blood pressure, diastolic 68 mm[Hg] Cezar Peralta blood pressure, systolic 118 mm[Hg] Azalia Peralta blood pressure, cuff size regular Cy gladys Peralta oxygen saturation, oximetry 97 % Marija Peralta pulse rate 89 /min Marija cardona respiratory rate E&M 16 /min Marija Peralta height E&M 63 [in_i] Marija Sarmiento l weight E&M 163 [lb_av] Marija Lunabel l ALLERGIES Allergy Name Onset Date Reaction Criticality Status MORPHINE Low Criticality active HISTORY OF MEDICATION USE Medication Status Instructions Dates Provider Indications Com ments lansoprazole 30 mg capsule,delayed release(DR/EC) [facility] tablet active [facility] sulfamethoxazole- trimethoprim 800-160 mg tablet completed Take 1 tablet by mouth every twelve hours - [facility] prednisone 10 mg tablet completed Take 1 tablet by mouth once a day - [facility] Bentyl 10 mg/mL solution completed - [facility] dicyclomine 10 mg capsule active Take 4 capsule by mouth once a day [facility] furosemide 20 mg tablet active Take 2 tablet by mouth once a day as needed edema [facility] aspirin 81 mg capsule active Take 1 capsule by mouth once a day [facility] amlodipine 5 mg tablet completed Take 1 tablet by mouth once a day - [facility] atorvastatin 20 mg tablet active Take 1 tablet by mouth once a day Marija Peralta diclofenac sodium 75 mg tablet,delayed release (DR/EC) completed Take 1 tablet by mouth once a day - [facility] famotidine 40 mg tablet active Take 1 tablet by mouth once a day Marija Peralta lisinopril-hydroc hlorothiazide 20-12.5 mg tablet completed Take 1 tablet by mouth once a day - [facility] nitrofurantoin monohyd/m-cryst 100 mg capsule completed Take 1 capsule by mouth once a day - [facility] omeprazole 40 mg capsule,delayed release(DR/EC) completed Take 1 capsule by mouth once a day - Funmi Koo [facility] SOCIAL HISTORY Date Observation Value Provider personal history of marijuana use no Funmi Koo [facility] drug use no Funmimacrina Balesmig brian [facility] alcohol use no Funmi Amairanimig brian [facility] smoking status Never smoker Funmi daly [facility] smoking status Never smoker Rafi Prince MD smoking status Never smoker Rafi Prince MD social history E&M Marital Statu s: Jenna ash: 5 O ccupation: Retired Medical Records Smoking History: Dieter gonzalez has never smoked. Rafi Prince MD social history reviewed E&M revi ewed - no changes required Rafi Prince MD smoking status Never smoker Dianne burris social history E&M Marital Statu s: Jenna ash: 5 O ccupation: Retired Medical Records Smoking History: Dieter gonzalez has never smoked. Rafi Prince MD social history reviewed E&M revi ewed - no changes required Rafi Prince MD smoking status Never smoker Marija lópez FUNCTIONAL STATUS Date Observation Value Provider HRA, CV Assess/Plan, Angina (inactive) Management Plan continue current therapy Funmi Koo [employer] HRA, CV Assess/Plan, Angina (inactive) Management Plan continue current therapy Rafi Prince MD FAMILY HISTORY Family Member Condition Son Family History of Di abetes: Son Family History of CV A or Stroke: Father Family History of CV A or Stroke: INSURANCE PROVIDERS Payer name Policy type / Coverage type [place] red green party ID [place] MED[place] Medicare [id number] ADVANCE DIRECTIVES Name Date DISCUSSED - NO DECISION MADE TREATMENT PLAN Date Name Performer [id number],S, Rafi diaz MD [id number],S,[facility]. Rafi Prince MD [id number],S, Rafi diaz MD [id number],S, Rafi diaz MD [id number],S, Rafi diaz MD [id number],S, Rafi diaz MD [id number],N,[address] scan which is just outside normal diameter. No invasive workup indicated. Yearly follow up is all that is needed. Rafi Prince MD Cardiology: H er updated medication list for this problem includes: Colestipol 1 Gram Tablet (Colestipol) Atorvastatin 20 Mg Tablet (Atorvastatin) ..... Take 1 tablet by mouth once a day [facility] Cardiology:chronic m ost likely venous insufficiency E ncouraged compression M ay also be r/t to [facility] and will see if improves with [facility] Cardiology:She state s she had CT/ABD Pelvis at [facility] last month W ill request records W ill f/u at next [facility] Cardiology:She is hy potensive today most likely r/t diarrhea and weight loss w ill stop norvac W ill have her only use furosemide prn T he following medications were removed from the medication list: Amlodipine 5 Mg Tablet (Amlodipine) ..... Take 1 tablet by mouth once a day Her updated medication list for this problem includes: Furosemide 20 Mg Tablet (Furosemide) ..... Take 2 tablet by mouth once a day as needed edema [facility] Cardiology:Had a one time episode of atypical chest pain a few weeks back during extreme cold W ill do f/u echo to look for any Lv dysfunction or WMA [facility] at this time will f/u in one month if persistent asked to return sooner T he following medications were removed from the medication list: Amlodipine 5 Mg Tablet (Amlodipine) ..... Take 1 tablet by mouth once a day [facility] Cardiology:Pedal edema. Venous d uplex normal. Rafi Prince MD Cardiology Rafi Prince MD Cardiology Rafi Prince MD Cardiology Rafi Prince MD Cardiology:Stress test normal Ra marty Prince MD Cardiology Rafi Prince MD Cardiology Rafi Prince MD Cardiology Rafi Prince MD Cardiology:Having ne w MORROW, may be anginal equivalent. Rafi Prince MD Cardiology Rafi Prince MD Cardiology:Follows at [place] for this. Rafi Prince MD Cardiology Rafi Prince MD Cardiology New Patient Rafi schultz MD Cardiology New Patient Rafi schultz MD Cardiology New Patient Rafi schultz MD Cardiology New Patie nt :2.[address] scan which is just outside normal diameter. No invasive workup indicated. Yearly follow up is all that is needed. Rafi Prince MD Date Name Venous Doppler Bilat eral LE - Reflux Stress Regadenoson Complete Echo Aorta Duplex Ultraso und HISTORY OF PROCEDURES Procedure Date Procedure Name Provider Procedure Notes S tatus EKG Rafi Prince MD complete d EKG Rafi Prince MD complete d
[2024-12-16 09:27] VITALS: BP 149/80; PULSE 73; RESP 18; TEMP 36.1; O2SAT 100; BMI 22.6
[2024-12-16] MEDS: LACTATED RINGERS 1,000 ML 150 ML IV CONT (09:31)
--- NOTE | 2024-12-16 09:41 | PM.HPGS ---
History of Present Illness History of Present Illness Consent: Risks, benefits, and alternatives have been discussed and questions answered. Patient agrees to proceed with procedure. Chief complaint: fecal abnormalities,right L quad pain,left L quad Narrative: Kelly Chan is a 79 year old female with change bowel habits, last colonoscopy 2021, also had elevated stool calprotectin Review of Systems Review of Systems: All systems reviewed & are unremarkable except as noted in HPI and below PMFSH Past Medical History Medical History Alternating constipation and diarrhea Gas pain Lactose intolerance Small intestinal bacterial overgrowth (SIBO) HTN (hypertension) GERD (gastroesophageal reflux disease) Arthritis Heart attack CAD (coronary artery disease) History of IBS Surgical History Surgical History Hx of cholecystectomy H/O: hysterectomy Family History Family History Mother Arthritis Cancer Father Heart disease Acute myocardial infarction Grandparent Cerebrovascular accident Heart failure Sibling Heart disease Diabetes mellitus Social History Social History Smoking status: Never smoker Alcohol intake: never Substance use: never Substance use type: does not use Living arrangements: with family Spiritual care concerns: No Meds Home Medications and Allergies Home Medications ?Medication ?Instructions ?Recorded ?Confirmed ?Type amlodipine 5 mg tablet 5 mg PO DAILY 12/30/20 12/16/24 History atorvastatin 20 mg tablet 20 mg PO DAILY 12/30/20 12/16/24 History aspirin 81 mg tablet,delayed 81 mg PO DAILY 03/23/22 12/16/24 History release (Adult Aspirin Regimen) duloxetine 30 mg capsule,delayed 30 mg PO DAILY 08/28/24 12/16/24 History release (Cymbalta) furosemide 20 mg tablet (Lasix) 20 mg PO BID 08/28/24 12/16/24 History lansoprazole 30 mg capsule,delayed 30 mg PO DAILY #30 caps 10/08/24 12/16/24 Rx release budesonide 3 mg 9 mg (3 x 3 mg) PO DAILY #90 ea 10/28/24 12/16/24 Rx capsule,delayed,extended release colestipol 1 gram tablet 1 g PO BID 12/08/24 12/16/24 History potassium chloride 20 mEq 20 meq PO DAILY PRN as needed 12/08/24 12/16/24 History tablet,extended release budesonide 3 mg 3 mg PO DAILY #42 ea 12/09/24 Rx capsule,delayed,extended release hyoscyamine sulfate 0.375 mg 0.375 mg PO Q12H #90 tabs 12/09/24 12/16/24 Rx tablet,extended release,12 hr (Levbid) Allergies Allergy/AdvReac Type Severity Reaction Status Date / Time No Known Allergies Allergy Verified 12/16/24 09:25 Vital Signs Vital Signs - 24 hr 12/16/24 09:27 Temperature 96.9 F L Pulse Rate 73 Respiratory Rate 18 Blood Pressure 149/80 H Pulse Oximetry 100 Oxygen Delivery Room Air Exam Const: General: comfortable and no acute distress HENMT: Face/Nose/Sinus: Normal nares present Eyes: General: appearance normal, both eyes and all related structures Neck: Neck: no JVD Resp: Auscultation: clear to auscultation bilaterally Cardio: Rate: regular rate Rhythm: regular rhythm GI: Inspection: non-distended GI Palp: Yes Soft to palpation Skin: General skin exam: normal color Neuro: Speech: normal speech Extrem: General: normal to inspection Psych: Mental Status: mental status grossly normal Assessment and Plan Assessment and plan (1) Elevated fecal calprotectin: Code(s): R19.5 - Other fecal abnormalities Status: Acute Assessment and Plan: colonoscopy (2) Alternating constipation and diarrhea: Code(s): R19.8 - Other specified symptoms and signs involving the digestive system and abdomen Status: Acute
--- NOTE | 2024-12-16 09:47 | P.PNAN_ITS ---
Anes - Eval Pre Procedure Procedure: Operation Date: 12/16/24 10:30 Proposed Procedures p Colonoscopy - Angelito Campbell MD Date/Time: 12/16/24 09:47 Pre Op Diagnosis: fecal abnormalities,right L quad pain,left L quad Patient Data Age: 79 Gender: F Height: 1.55 m Weight: 54.5 kg Last Vital Signs Temp 36.1 C L 12/16/24 09:27 Pulse 73 12/16/24 09:27 Resp 18 12/16/24 09:27 BP 149/80 H 12/16/24 09:27 Pulse Ox 100 12/16/24 09:27 O2 Del Method Room Air 12/16/24 09:27 Allergies Allergy/AdvReac Type Severity Reaction Status Date / Time No Known Allergies Allergy Verified 12/16/24 09:25 Home Medications ?Medication ?Instructions ?Recorded ?Confirmed ?Type amlodipine 5 mg tablet 5 mg PO DAILY 12/30/20 12/16/24 History atorvastatin 20 mg tablet 20 mg PO DAILY 12/30/20 12/16/24 History aspirin 81 mg tablet,delayed 81 mg PO DAILY 03/23/22 12/16/24 History release (Adult Aspirin Regimen) duloxetine 30 mg capsule,delayed 30 mg PO DAILY 08/28/24 12/16/24 History release (Cymbalta) furosemide 20 mg tablet (Lasix) 20 mg PO BID 08/28/24 12/16/24 History lansoprazole 30 mg capsule,delayed 30 mg PO DAILY #30 caps 10/08/24 12/16/24 Rx release budesonide 3 mg 9 mg (3 x 3 mg) PO DAILY #90 ea 10/28/24 12/16/24 Rx capsule,delayed,extended release colestipol 1 gram tablet 1 g PO BID 12/08/24 12/16/24 History potassium chloride 20 mEq 20 meq PO DAILY PRN as needed 12/08/24 12/16/24 History tablet,extended release budesonide 3 mg 3 mg PO DAILY #42 ea 12/09/24 Rx capsule,delayed,extended release hyoscyamine sulfate 0.375 mg 0.375 mg PO Q12H #90 tabs 12/09/24 12/16/24 Rx tablet,extended release,12 hr (Levbid) Patient hx anesthesia problems: none Family hx anesthesia problems: none Results Review: All pre-operative results and documents have been reviewed as part of the pre- operative evaluation. [facility] Past Medical History Medical History Alternating constipation and diarrhea Gas pain Lactose intolerance Small intestinal bacterial overgrowth (SIBO) HTN (hypertension) GERD (gastroesophageal reflux disease) Arthritis Heart attack CAD (coronary artery disease) History of IBS Surgical History Surgical History Hx of cholecystectomy H/O: hysterectomy Family History Family History Mother Arthritis Cancer Father Heart disease Acute myocardial infarction Grandparent Cerebrovascular accident Heart failure Sibling Heart disease Diabetes mellitus Social History Social History Smoking status: Never smoker Alcohol intake: never Substance use: never Substance use type: does not use Living arrangements: with family Spiritual care concerns: No Exam Day of Procedure 12/16/24 09:47 Heart: regular rate and rhythm Lungs: normal air movement Airway: Mallampati scale class II Neurological: alert and oriented
[2024-12-16 10:19] VITALS: BP 138/72; PULSE 72; RESP 23; O2SAT 100
[2024-12-16 10:29] VITALS: BP 143/64; PULSE 61; RESP 23; O2SAT 100
[2024-12-16 10:39] VITALS: BP 160/79; PULSE 63; RESP 19; O2SAT 100
== END 2024-12-16 10:53 | disposition home or self-care (01) ==
PROVIDERS: PCP Nurse Practitioner Family; Referring Provider Nurse Practitioner; Visit Provider Internal Medicine Gastroenterology
PROC: 0DJD8ZZ Inspection of Lower Intestinal Tract, Via Natural or Artificial Opening Endoscopic (ICD-10-PCS; CPT 45378; principal; 2024-12-16 10:30)
DX: D12.0 Benign neoplasm of cecum (principal); D12.2 Benign neoplasm of ascending colon; D12.3 Benign neoplasm of transverse colon; D12.4 Benign neoplasm of descending colon; K64.8 Other hemorrhoids; R19.8 Other specified symptoms and signs involving the digestive system and abdomen; I10 Essential (primary) hypertension; K21.9 Gastro-esophageal reflux disease without esophagitis; K58.9 Irritable bowel syndrome, unspecified; I25.10 Atherosclerotic heart disease of native coronary artery without angina pectoris; I25.2 Old myocardial infarction; E73.9 Lactose intolerance, unspecified; M19.90 Unspecified osteoarthritis, unspecified site; Z79.82 Long term (current) use of aspirin; Z98.890 Other specified postprocedural states; Z90.49 Acquired absence of other specified parts of digestive tract; Z80.9 Family history of malignant neoplasm, unspecified; Z82.49 Family history of ischemic heart disease and other diseases of the circulatory system
CPT/HCPCS: 45380; 45385; 88305; J2003; J2704; J7120